=== PATIENT | female | born 1965 | race Hispanic/Latino ===

== ENCOUNTER 2024-11-17 13:30 | Emergency (ER) | payer OTHER, SELFPAY ==
--- NOTE | ~2024-11-17 | XR_ITS ---
XR knee LT min 4V Ordering provider: Charlene Maradiaga NP History: . FALL, TWISTED INJURY. . Comparison: None. FINDINGS: BONES: No acute fracture or dislocation. JOINT SPACES: Normal. SOFT TISSUES: Radiopaque shadow seen anterior to the tibia which may be foreign body or soft tissue c alcification IMPRESSION: No acute osseous abnormality left knee. Reviewed, dictated and finalized at location A.
--- OUTSIDE RECORDS SUMMARY | 2024-11-18 13:39 | XMS_ITS | Continuity of Care Document ---
Author Organization [facility] Address [address] [place] [address] [place] [address] Phone Care Team Providers Care Retail Security Professional Name Role Phone Marco A Shaw MD Unavailable Unavailable Allergies, Adverse Reactions, Alerts Substance Reaction Status Criticality venom-honey bee Active No Informati on tramadol Active No Information Medications Medication Instructions Dosage Effective Dates (start - stop) Status Comments [place] 10 mg-325 mg tablet take 1 by Oral route 4 times every day as needed 1 - Active avoid driving or operate machines Xanax 1 mg tablet take 1 tablet by oral route 3 times every day as needed 1 MG - Active avoid drivin g or operate machines Lipitor 20 mg tablet take 1 Tablet by oral route every day 20 MG - Active Wellbutrin XL 150 mg 24 hr tablet, extended release take 1 tablet by oral route every morning 150 MG - Active Procedures Procedure Date OFFICE/OUTPATIENT VISIT, EST OFFICE/OUTPATIENT VISIT, EST OFFICE/OUTPATIENT VISIT, EST OFFICE/OUTPATIENT VISIT, EST OFFICE/OUTPATIENT VISIT, EST OFFICE/OUTPATIENT VISIT, EST OFFICE/OUTPATIENT VISIT, EST OFFICE/OUTPATIENT VISIT, EST PREV VISIT, NEW, AGE 40-64 OFFICE/OUTPATIENT VISIT, NEW Advance Directives Directive Yes / No Effective Date File Name No Information Encounters Encounter Description Practice Location Reason(s) For Visit Diagnoses Date Provider Providers Copied on Encounter OFFICE/OUTPA TIENT VISIT, EST [facility], [address] [place] [id number], [place] tel:[phone] [facility] back pain1 (chief complaint) anxiety1 (chief complaint) alcohol1 (chief complaint) hep c (chief complaint) Chronic viral hepatitis CChronic pain syndromeGeneralized anxiety disorderAlcohol dependence, uncomplicated [id number] [address] Colin Strickland. [address], [place], [place], [id number] , [place]. tel:[phone] Referring Provider: Marco A Shaw, [address], [place], [place], [id number]. tel:[phone] OFFICE/OUTPA TIENT VISIT, [facility] [place], [address], [place], [place], [id number], [place] tel:[phone] [facility] HLP (chief complaint) anxiety1 (chief complaint) back pain1 (chief complaint) right toe pain1 (chief complaint) HyperlipidemiaGener alized anxiety disorderChronic pain syndromePain in rt foot 6 Colin Strickland. [address], [place], [place], [address] , [place]. [phone] Referring Provider: Rosalba Yang, [place], [place], [id number]. tel:[phone] OFFICE/OUTPA TIENT VISIT, [facility] [place], [address], [place], [place], [id number], [place] tel:[phone] [facility] HLP (chief complaint) back apin1 (chief complaint) hep c (chief complaint) proteinrui a1 (chief complaint) HyperlipidemiaGener alized anxiety disorderChronic viral hepatitis CProteinuria 0 6 Colin Anaya [address], [place], [place], [address] , [place]. tel:[phone] Referring Provider: Rosalba Yang, [place], [place], [id number]. tel:[phone] OFFICE/OUTPA TIENT VISIT, [facility] [place], [address], [place], [place], [address], [place] tel:[phone] [facility] back apin1 (chief complaint) anxiety1 (chief complaint) hLP (chief complaint) sick (chief complaint) HyperlipidemiaGener alized anxiety disorderChronic pain syndromeUpper respiratory infection 6 Colin Strickland. [address], [address], [place], [place], [address] , [place]. [phone] Referring Provider: Marco A Shaw, [address], [place], [place], [address]. tel:[phone] OFFICE/OUTPA TIENT VISIT, [facility] [place], [address], [place], [place], [address], [place] tel:[phone] [facility] HLP (chief complaint) anxiety1 (chief complaint) hep c (chief complaint) back pain1 (chief complaint) toothache (chief complaint) Chronic viral hepatitis CGeneralized anxiety disorderChronic pain syndromeHyperlipide dennis 6 Colin Strickland. [address], [address], [place], [place], [address] , [place]. [phone] Referring Provider: Rosalba Yang [address], [place], [place], [address]. tel:[phone] OFFICE/OUTPA TIENT VISIT, [facility] [place], [address], [place], [place], [address], [place] tel:[phone] [facility] hematuria1 (chief complaint) anxiety1 (chief complaint) back pain1 (chief complaint) hep c1 (chief complaint) HematuriaChronic pain syndromeGeneralized anxiety disorderChronic viral hepatitis C 6 Colin Strickland. [address], [place], [place], [address] , [place]. [phone] Referring Provider: Rosalba Yang [address], [place], [place], [address]. tel:[phone] OFFICE/OUTPA TIENT VISIT, [facility] [place], [address], [place], [place], [address], [place] tel:[phone] [facility] chronic pain (chief complaint) hep C (chief complaint) anxiety1 (chief complaint) Chronic pain syndromeChronic viral hepatitis CCrohn's disease, unspecified, with other complicationGeneral ized anxiety disorder 6 Colin Strickland. [address], [place], [place], [address] , [place]. [phone] Referring Provider: Rosalba Yang [address], [place], [place], [address]. tel:[phone] OFFICE/OUTPA TIENT VISIT, [facility] [place], [address], [place], [place], [address], [place] tel:[phone] [facility] lumbago1 (chief complaint) hep C (chief complaint) anxiety1 (chief complaint) Generalized anxiety disorderChronic viral hepatitis CCrohn's disease, unspecified, with other complicationChronic pain syndrome 6 Colin Strickland. [address], [place], [place], [address] , [place]. [phone] Referring Provider: Rosalba Yang [address], [place], [place], [address]. tel:[phone] PREV VISIT, NEW, AGE 40-64 [facility], [address], [place], [place], [address], [place] [phone] [facility] Physical1 (chief complaint) Encounter for general adult medical exam w abnormal findingsChronic pain syndromeGeneralized anxiety disorderCrohn's disease of large intestine with rectal bleeding 6 Colin Anaya [address], [place], [place], [address] , [place]. tel:[phone] Referring Provider: Rosalba Yang [address], [place], [place], [address]. tel:[phone] Family History Family Member Type Diagnosis Age At Onset Father Problem (finding) Hypertension Father Problem (finding) Diabetes mellitus type 2 Mother Problem (finding) Coronary artery disease 45 Brother Problem (finding) Alive and well Payers Payer name Insurance type Covered alliance party ID Authorstephaniea mark(s) No Information Social History Type Description Quantity Date Captured Comments Alcohol Use Details No Caffeine Use Details Unknown Tobacco Use Status Moderate cigarette s moker (10-19 cigs/day) Smoking Status Heavy tobacco smoker Sex Female Vital Signs Date / Time: Height Weight BMI Pulse Rate Blood Pressure Temperature Respiratory Rate Body Surface Area Head Circumference BMI percentile Pulse Ox Inhaled Ox 9:05 AM 154.94 cm 164.00 lbs 30.9 9 kg/m eter (2) 68 /min 125/69 mm[Hg] 98.4 F 18 /min Chief Complaint And Reason For Visit From encounter dated '06/09/2016 08:15'. back pain1 (chief complaint). Description: Pt has chronic low back pain. Pt takes norco for pain. Pt denies any worsening pain. Pt c/o sciatica and leg numbness anxiety1 (chief complaint). Description: Pt has chronic anxiety and depression. Pt takes wellbutrinand xanax. Pt doing ok. Pt denies any suicidal or homicidal thought. Pt denies any crying spells. alcohol1 (chief complaint). Description: Pt drinks alcohol rarely per pt and she does not mix alcohol with medication hep c (chief complaint). Description: Pt does not have any active hepatitis C. Pt has negative loadand type Plan Of Treatment Date Type Action Status Referral Ordered: Physical Therapy (related to Chronic pain syndrome) ordered Referral Referred To: Physical Therapy Ordered: Referrals: Physical Therapy. Evaluate and treat ordered History Of Present Illness Encounter Date Complaint History Of Prese nt Illness back pain1 Pt has chronic l ow back pain. Pt takes norco for pain. Pt denies any worsening pain. Pt c/o sciatica and leg numbness anxiety1 Pt has chronic a nxiety and depression. Pt takes wellbutrin and xanax. Pt doing ok. Pt denies any suicidal or homicidal thought. Pt denies any crying spells. alcohol1 Pt drinks alcoho l rarely per pt and she does not mix alcohol with medication hep c Pt does not have any active hepatitis C. Pt has negative load and type HLP Pt has HLP Pt ta kes lipitor. Pt denies any myalgia. Pt had lab done, but pending anxiety1 Pt has chronic a nxiety and depression Pt takes wellbutirn and xanax and doing ok. Pt denies any suicidal or homicidal thought back pain1 Pt has chronic s evere low back pain. Pt denies any worsening pain. Pt denies any loss of bowel or bladder control. Pt has scaitica. Pt has 7/10 pain daily. right toe pain1 Pt c/o acute ons et of right 1st MP joint pain for 4 weeks. Pt went to ER and was told she has gout. Pt was given abx only. PT denies any foot injury. Pt still has some pain right 1st MP joint but better HLP Pt has HLP. Pt t akes lipitor. Pt denies any myalgia. Pt is on low fat and low carb diet back apin1 Pt has chronic s evere low back apin. Pt denies any worsening pain. Pt denies any loss of bowel or bladder control. Pt takes norco for pain and doing ok. Pt failed NSAID. Pt has 8/10 pain daily. Pt c/o left sciatica. hep c Pt told me she h ad hep C lab done but result not here today. proteinruia1 Pt has proteinur ia. Pt denies any UTI symptoms. No more hematuria back apin1 Pt has chronic l ow back pain Pt has sciatica and leg numnbess. Pt has 7/10 pain daily. Pt c/o sharp pain anxiety1 Pt has chronic a nxity and depression. Pt takes wellbutirn and xanax and doing ok. Pt denies any suicidal or homcidialt hought. Pt denies any cyring spells hLP Pt tolerating li pitor ok. Pt denies any myalgia sick Pt c/o sore thro at, coughing up green phlegm, ear pain for one week. Pt denies any fever. Pt has subjective fever HLP Pt has very high TC and TG. Pt is not on any diet anxiety1 Pt has chronic a nxiety and depression. Pt takes wellbutrin and xanax and doing ok. Pt denies any suicidal or homiciadl thought. pt denies any crying spells hep c Pt has hep C Her hep C genotyping is undetected but no viral load avaialle in lab. Pt is noncompliant about GI back pain1 Pt has chronic l ow back pain. Pt denies any loss of bowel or bladder control toothache Pt has toothache left upper molor for several weeks Pt denies any facial swelling hematuria1 Pt has hematuria on urine test. Pt deneis any UTI symptoms anxiety1 Pt has chronic a nxiety and depression Pt takes wellbutrin and xanax. Pt denies any suicidal or homcidial thought. Pt denies any crying spells. back pain1 Pt has chronic l ow back pain. Pt denies any loss of bowel or bladder control. Pt was doing PT but was discharged since the PT told her it is not going to help.k Pt c/o sciatica and leg numbness. Pt has 8/10 back pain daily. hep c1 Pt has hep C and crohn disease Pt needs colonoscopy and also follow up with GI in [facility] for hep C treatment. Pt has been noncompliant. Pt has intermittent bloody diarrhea. chronic pain Pt has chronic l ow back pain. Pt c/o sciatica and leg numbness. Pt has severe pain and is opioid dependent. pt denies any worsening pain. Pt deneis any loss of bowel or bladder control anxiety1 Pt has chronic a nxiety and depression. Pt has been having taking wellbutirn and xanax. Pt denies any suicidal or homicidal thought. Pt has a lot of personal stress to deal with at home. hep C Pt has hep C and crohn disease. Pt needs repeat colonosocpy and also she is noncompliant with hep C lab. Pt is seeing GI doctor at [facility] but she has not done any lab work nor did she scheduled for a colonoscopy to reassess her crohn disease. Pt does have abd pain and cramp Pt denies any diarrhea or any blood in stool. lumbago1 Pt has chronic l ow back apin. Pt denies any loss of bowel or bladder control. Pt has severe DDD per patient. Pt was seeing pain managment but she does not want to use fentanyl and pain pump and she was discharged. Pt states that she tried fentanyl patch in the past. Pt could not afford the patch. P hep C Pt has hep C and also has has crohn disease. Pt told me she was never treated for hep C. Pt denies any nasuea, vomiting, diarrhea. anxiety1 pt has chronic a nxiety and depression. Pt takes wellbutirn and xanax. pt denies any suicidal or homcidialt hought Pt denies any crying spells Physical1 Pt needs annual physical. Pt has chronic severe low back pain. Pt was seeing pain managemnt but she refuses to use morphine pump so she was fired. Pt has severe DDD Lspine. Pt takes up to 8 norco per day. Pt failed injection. Pt c/o sciatica and leg numnbess. Pt has 9/10 p ain daily. Pt also has chronic anxiety and depression and she takes wellbutrin and xanax. Pt denies any suicidal or homicidal thought Pt denies any crying spells. Pt has crohn disease and she is seeing GI. No medication yet. Pt denies any other complaints. Instructions Date Instruction Marianne urias Prescribed Diet Educ ation/Lifestyle Education Regarding Diet Related to Dietary Surveillance and Counseling Prescribed Activity and Exercise Education Related to Dietary Surveillance and Counseling Prescribed Activity and Exercise Education Related to Dietary Surveillance and Counseling Prescribed Diet Educ ation/Lifestyle Education Regarding Diet Related to Dietary Surveillance and Counseling Prescribed Diet Educ ation/Lifestyle Education Regarding Diet Related to Dietary Surveillance and Counseling Prescribed Activity and Exercise Education Related to Dietary Surveillance and Counseling Prescribed Diet Educ ation/Lifestyle Education Regarding Diet Related to Dietary Surveillance and Counseling Prescribed Activity and Exercise Education Related to Dietary Surveillance and Counseling Prescribed Activity and Exercise Education Related to Dietary Surveillance and Counseling Prescribed Diet Educ ation/Lifestyle Education Regarding Diet Related to Dietary Surveillance and Counseling Prescribed Activity and Exercise Education Related to Dietary Surveillance and Counseling Prescribed Diet Educ ation/Lifestyle Education Regarding Diet Related to Dietary Surveillance and Counseling Prescribed Activity and Exercise Education Related to Dietary Surveillance and Counseling Prescribed Diet Educ ation/Lifestyle Education Regarding Diet Related to Dietary Surveillance and Counseling Prescribed Activity and Exercise Education Related to Dietary Surveillance and Counseling Prescribed Diet Educ ation/Lifestyle Education Regarding Diet Related to Dietary Surveillance and Counseling Prescribed Diet Educ ation/Lifestyle Education Regarding Diet Related to Dietary Surveillance and Counseling Prescribed Activity and Exercise Education Related to Dietary Surveillance and Counseling Assessments Type Assessment Date assessment Chronic viral hepatitis C assessment Chronic pain syndrome 6 assessment Generalized anxiety disorder Jun assessment Alcohol dependence, uncomplicate d Mental Status Date Cognitive Assessment Orientation - [place] ed to time, place, person, situation.
--- OUTSIDE RECORDS SUMMARY | 2024-11-18 13:39 | XMS_ITS | Referral Summary ---
Author Organization [facility] Address [address] [place] [address] Care Team Providers Care Doctor Of Nurse Anesthesia Name Role Phone Rigoberto Montejo RN Unavailable UnavailMagaly Raymond RN Unavailable Unavailab Donnie Raymond MD Primary Care Provider [phone] Allergies Active Allergy Reactions Criticality Noted Date Comments Bee Pollen Tramadol Other (See comments) Low Medication reaction with antidepressant Venom-Honey Bee Anaphylaxis,Angioede m a,Swelling High 05/06/2015 Medications naproxen (NAPROSYN) 500 mg tablet Take 1 tablet (500 mg total) by mouth as needed 11/20/2022 Active ibuprofen (ADVIL,MOTRIN) 800 mg tablet Take 1 tablet (800 mg total) by mouth every 6 (six) hours as needed for pain Active meloxicam (MOBIC) 15 mg tablet Take 1 tablet (15 mg total) by mouth daily 30 tablet 08/24/2023 Active Active Problems Problem Noted Date Diagnosed Date Bilateral nephrolithiasis 12/26/2022 Hydronephrosis with urinary obstruction due to ureteral calculus 04/24/2022 Ureterolithiasis 04/24/2022 Arthritis 06/07/2020 Sacroiliitis 12/15/2019 Lumbar radiculopathy 09/25/2019 Attention deficit disorder 04/22/2019 tank terminal gauger (current) use of opiate analgesic 07/2018 Tobacco use disorder 08/10/2018 Anxiety and depression 06/17/2018 Neuropathy 06/17/2018 Strain of left pectoralis muscle 04/22/2018 Chronic bilateral low back pain without sciatica 04/06/2018 Hallux valgus, right 09/27/2017 Mononeuritis leg, right 09/27/2017 Spondylolisthesis 10/16/2016 Overview (11/27/2016): Spondylolisthesis Spinal stenosis of lumbar region with radiculopa thy 10/16/2016 Overview (11/27/2016): Spinal stenosis of lumbar region Chronic pain disorder 11/21/2015 Viral hepatitis C without hepatic coma 6 Overview (06/07/2020): Overview: Genotype Diagnosed 2013 Naive to therapy 07/10/15 Fibroscan 7.7 kPa Anxiety disorder 05/06/2015 Crohn's disease 05/06/2015 Overview (06/07/2020): Overview: Diagnosed 2007 Dorsalgia 05/06/2015 Hematuria 05/06/2015 Overview (06/07/2020): Overview: Negative cystoscopy Major depressive disorder, single episode 2014 Polyneuropathy 05/06/2015 Pure hypercholesterolemia 05/06/2015 Degenerative spondylolisthesis 05/10/2014 Overview (10/08/2016): Acquired spondylolisthesis DDD (degenerative disc disease), lumbar 04/20/20 14 Overview (10/08/2016): Degeneration of lumbar intervertebral disc Lumbosacral radiculitis 04/20/2014 Overview (10/08/2016): Lumbosacral radiculitis History of cervical dysplasia 02/04/2010 Resolved Problems Problem Noted Date Diagnosed Date Resolved Date Screening for breast cancer 08/10/2018 01/08/2022 Foot sprain, left, initial encounter 04/22/2018 01/08/2022 Immunizations Immunization Administration Dates Next Due Hep A, Adult 05/14/2014,11/10/2013 Hep B Vaccine 05/14/2014,01/03/2014,11/10/2013 Influenza, Quadrivalent, Spl it, Preservative Free, Intramuscular 03/30/2019,05/05/2018 Pneumococcal Conjugate PCV 13 07/05/2016 Tdap 05/05/2018,09/06/2012 Social History Tobacco Use Types Packs/Day Years Used Date Smoking Tobacco: Every Day Cigarettes Smokeless Tobacco: Never Tobacco Cessation:Ready to Q uit: Not Asked; Counseling Given: Not Answered Alcohol Use Standard Drinks/Week Comments No 0 (1 standard drink = 0.6 oz pur e alcohol) PHQ-2 Answer Date Recorded PHQ-2 Total Score (If total score is 3 or more points, staff should administer the PHQ-9) 5 12/15/2019 Personal Safety Answer Date Recorded Have you ever been in or are you currently in a harmful physical or emotional relationship or is someone making you feel afraid or unsafe? 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 Gender Identity Not on file Sexual Orientation Not on file Last Filed Vital Signs Vital Sign Reading Time Taken Comments Blood Pressure 131/76 08/24/2023 4:40 PM CHILDREN COUNSELOR Pulse 106 08/24/2023 4:40 PM CHILDREN COUNSELOR Temperature 36.9 C (98.5 F) 08/24/2023 4:40 PM CHILDREN COUNSELOR Respiratory Rate 18 08/24/2023 4:40 PM CHILDREN COUNSELOR Oxygen Saturation 97% 08/24/2023 4:40 PM CHILDREN COUNSELOR Inhaled Oxygen Concentration - - Weight 81.6 kg (180 lb) 08/24/2023 4:40 PM CHILDREN COUNSELOR Height 154.9 cm (5' 1 ) 08/24/2023 4:40 PM CHILDREN COUNSELOR Body Mass Index 34.01 08/24/2023 4:40 PM CHILDREN COUNSELOR Plan of Treatment Not on file Goals Goal Patient Goal Type Associated Problems Recent Progress Patient-Stated? Author -[facility] No change(2019 10:42 AM CDT) No Rigoberto Montejo, RN Note: Patient will report that the pain management medication regimen achieves comfort-function goal without the occurrence of adverse effects. Insurance [employer] OPEN ACCESS [facility] [employer] OPEN ACCESS [facility] [employer] OPEN ACCESS [facility] Care Teams Doctor Of Nurse Anesthesia Relationship Specialty Start Date End Date Donnie Rene MD PCP - General Internal Medicine 01/07/22 Rigoberto Montejo, RN Registered Nurse 10/18/17 Magaly Sanchez, RN Registered Nurse Pain Management 01/11/18
--- OUTSIDE RECORDS SUMMARY | 2024-11-18 13:39 | XMS_ITS | Clinical Summary ---
Author Organization [facility] Address [address] [place] [address] Phone Care Team Providers Care Steam Table Associate Name Role Phone Meagn Davila APRN, MEDICAL PHYSICS PROFESSOR Unavailable Maynor Joy MD Unavailable Serene Vega MD Unavailable [phone] Lesly Toribio DO Primary Care Provider [phone] Allergies Active Allergy Reactions Criticality Noted Date Comments Bee Venom Anaphylaxis,Swelling High 07/31/2016 Mushroom Unknown 07/05/2024 Stated per patient Tramadol Other (see Comments),Hives Low 07/22/2015 Medication reaction with antidepressant interacts with depression medication Medications sertraline (ZOLOFT) 50 MG Tablet Take 1 Tablet by mouth daily. 90 Tablet 1 08/31/2024 Active meloxicam (MOBIC) 15 MG Tablet Take 1 Tablet by mouth daily. 90 Tablet 3 08/31/2024 Active traZODone (DESYREL) 100 MG Tablet Take 1 Tablet by mouth nightly. 30 Tablet 08/31/2024 Active gabapentin (NEURONTIN) 300 MG Capsule Take 1 Capsule by mouth nightly. 30 Capsule 3 08/31/2024 Active ergocalciferol (VITAMIN D) 74341 UNIT Capsule Take 1 Capsule by mouth once a week. 12 Capsule 09/13/2024 Active ibuprofen (MOTRIN) 600 MG TabletIndicatio ns:Pain Take 1 Tablet by mouth every 8 hours as needed for Moderate or more severe pain. Indications: Pain 30 Tablet 09/18/2024 Active Active Problems Problem Noted Date Diagnosed Date Tobacco dependence 02/19/2023 Bilateral nephrolithiasis 12/26/2022 Anxiety and depression 04/24/2022 Sacroiliitis 12/15/2019 Attention deficit disorder 04/22/2019 assisted (current) use of opiate analgesic 07/2018 Screening for breast cancer 08/10/2018 Tobacco use disorder 08/10/2018 Crohn's disease with complication 06/17/2018 Depression 06/17/2018 Neuropathy 06/17/2018 Chronic bilateral low back pain with bilateral s ciatica 04/06/2018 Hallux valgus, right 09/27/2017 Mononeuritis leg, right 09/27/2017 Spinal stenosis of lumbar region with radiculopa thy 10/16/2016 Overview (10/17/2020): Spinal stenosis of lumbar region Chronic pain disorder 11/21/2015 Viral hepatitis C without hepatic coma 6 Overview (10/17/2020): Overview: Genotype Diagnosed 2013 Naive to therapy 07/10/15 Fibroscan 7.7 kPa Genotype Diagnosed 2013 Naive to therapy 07/10/15 Fibroscan 7.7 kPa Polyneuropathy 05/06/2015 Acquired spondylolisthesis 05/10/2014 Overview (06/17/2018): Overview: Acquired spondylolisthesis Lumbosacral radiculitis 04/20/2014 Overview (10/17/2020): Lumbosacral radiculitis Dorsalgia Arthritis Anxiety disorder Lumbar degenerative disc disease Overview (06/17/2018): Overview: Degeneration of lumbar intervertebral disc Overview: L1-5 Hypercholesterolemia Resolved Problems Problem Noted Date Diagnosed Date Resolved Date Neurological deficit present 02/19/2023 02/21/2023 Ataxia 02/19/2023 02/21/2023 Numbness 02/19/2023 02/21/2023 Chest pain 02/19/2023 02/21/2023 Urinary tract infection 12/26/202212/04 Ureterolithiasis 04/24/2022 12/26/2022 Hydronephrosis with urinary obstruction due to ureteral calculus 04/24/2022 12/26/2022 Dysuria 09/12/2018 12/13/2018 Viral hepatitis C 06/17/2018 12/13/2018 Overview (06/17/2018): Overview: Genotype Diagnosed 2013 Naive to therapy 07/10/15 Fibroscan 7.7 kPa Strain of left pectoralis muscle 04/22/2018 08/08/2018 Metatarsalgia, left foot 09/27/201710/2018 [place] or callus 09/27/2017 09/12/2018 Pain in both feet 09/27/2017 08/08/2018 Viral hepatitis C without hepatic coma 07/10/2015 12/13/2018 Overview (06/17/2018): Overview: Genotype Diagnosed 2013 Naive to therapy 07/10/15 Fibroscan 7.7 kPa Hypertension 08/08/2018 Asthma 08/08/2018 Encounters Date Type Department Care Team Description 10/19/2024 Telephone [facility] [place] [address] Lesly Toribio DO 10/02/2024 Nurse Triage [facility] [address] [place] [id number] Lesly Toribio, Advice Only; [facility]; Diarrhea; Abdominal Pain 09/19/2024 Results [facility]-Up [facility] [address] [place] [address] Lesly Toribio, DO XR CERVICAL SPINE MINIMUM 4 VIEWS (4 OR 5V) 09/18/2024 1:43 PM CDT - 09/18/2024 3:58 PM CDT [facility] [address] [place] [address] Zi Stewart, PAC Contusion of right shoulder, initial encounter Discharge Disposition: Discharged to home or Selfcare 09/18/2024 Travel 09/13/2024 Results [facility] [place] [address] Lesly Toribio DO CMP (COMPREHENSIVE METABOLIC PANEL), HEMOGLOBIN A1C W/ ESTIMATED GLUCOSE, LIPID PANEL, Additional followed-up results: 6 09/06/2024 2:24 PM HIRED HAND - 09/06/2024 11:59 PM HIRED HAND Hospital Encounter [facility] Diagnostic Radiology [address] [place] [address] Lesly Toribio, Discharge Disposition: Discharged to home or Selfcare 09/06/2024 Travel 08/31/2024 9:45 AM HIRED HAND Office Visit [facility] [address] [place] [address] Lesly Toribio, Polyneuropathy (Primary Dx); Other fatigue; Hypercholesterolemia; Lumbosacral radiculitis; Hepatitis C virus infection without hepatic coma, unspecified chronicity; Tobacco dependence; Encounter for screening mammogram for malignant neoplasm of breast; Anxiety and depression; Encounter for screening mammogram for breast cancer; Crohn's disease of colon with complication (HCC) Discharge Disposition: Discharged to home or Selfcare 08/31/2024 Travel 08/24/2024 Telephone [facility] [place] [address] Lesly Toribio DO from Last 3 Months Immunizations Immunization Administration Dates Next Due Covid-19, Mrna, Lnp-s, Pf, 1 00 Mcg Or 50 Mcg Dose (MODERNA) 10/03/2021,09/08/2021 Hepatitis A Vaccine 05/14/2014,11/10/2013 Hepatitis B Vaccine 05/14/2014,01/03/2014,2013 Influenza Vaccine, Quadrivalent, PF 03/30/2019,1 07/05/2017 Pneumococcal Vaccine - 13 Valent 07/05/2016 TDAP Vaccine 05/05/2018,09/06/2012 Family History Medical History Relation Name Comments Alcohol Abuse Brother 1 Bipolar Disorder Brother 1 Depression Brother 1 Drug Abuse Brother 1 No Known Problems Brother 2 Alcohol Abuse Father Diabetes Father Hypertension Father Rheumatoid Arthritis Father No Known Problems Maternal Grandfather No Known Problems Maternal Grandmother Asthma Mother Congestive Heart Failure Mother Heart Attack Mother Heart Disease Mother Heart Surgery Mother Migraines Mother Other-comment Mother OPEN HEART ANABELLA JERRICA Stroke Mother Diabetes Paternal Grandfather Breast Cancer Paternal Grandmother Cancer Paternal Grandmother breast Alcohol Abuse Sister 1 No Known Problems Sister 2 Migraines Sister 3 Relation Name Status Comments Brother 1 Alive Brother 2 Alive Father Maternal Grandfather Maternal Grandmother Mother Alive Paternal Grandfather Paternal Grandmother Sister 1 Alive Sister 2 Alive Sister 3 Alive Social History Tobacco Use Types Packs/Day Years Used Date Smoking Tobacco: Every Day Cigarettes Smokeless Tobacco: Never Tobacco Cessation:Ready to Q uit: Not Asked; Counseling Given: Not Answered Alcohol Use Standard Drinks/Week Comments Yes 0 (1 standard drink = 0.6 oz pur e alcohol) Very rare PHQ-2 Answer Date Recorded Total Score - Questions 1-9 0 08/06 Sexually Active Control Partners Comments Not Currently Comments No Sex and Gender Information Value Date Recorded Sex Assigned at Not on file Legal Sex Female 9:07 PM CDT Gender Identity Not on file Sexual Orientation Not on file Last Filed Vital Signs Vital Sign Reading Time Taken Comments Blood Pressure 118/72 09/18/2024 1:40 PM CDT Pulse 84 09/18/2024 1:40 PM CDT Temperature 36.2 C (97.1 F) 09/18/2024 1:40 PM CDT Respiratory Rate 18 09/18/2024 1:40 PM CDT Oxygen Saturation 98% 09/18/2024 1:40 PM CDT Inhaled Oxygen Concentration - - Weight 77.1 kg (170 lb) 09/18/2024 1:40 PM CDT Height 154.9 cm (5' 1 ) 09/18/2024 1:40 PM CDT Body Mass Index 32.12 09/18/2024 1:40 PM CDT Plan of Treatment Health Maintenance Due Date Last Done Comments Jamel 2017 Mammogram 09/10/2017 09/10/2016 Immunochemical Fecal Occult Blood 11/29/2021 11/29/2020 Colonoscopy 10/28/2027 10/27/2017, 06/09/2017, 08/14/2015 Colorectal Cancer Screening 10/28/2027 Td Immunization Every 10 Yea rs (Adults With 1 Tdap) 05/05/2028 05/05/2018, 09/06/2012 Respiratory Syncytial Virus (RSV) Immunization (Adult) (1 - 1-dose 75+ series) 2042 10/27/2017, 06/09/2017, 08/14/2015 Hepatitis B Immunization Completed 014, 01/03/2014, 11/10/2013 Pneumococcal Immunization (5 0+ years) Discontinued 07/05/2016 Pneumococcal Immunization Combined Discontinued 07/05/2016 Influenza Immunization Discontinued 9, 05/05/2018 SARS-COV-2 Immunization Discontinued 10/04/19, 09/08/2021 Human Papillomavirus (HPV) Immunization Aged Out No longer eligible based on patient's age to complete this topic Meningococcal Immunization (ACWY) Aged Out No longer eligible based on patient's age to complete this topic Rotavirus Immunization Aged Out No lo nger eligible based on patient's age to complete this topic Zoster Immunization Discontinued Medical Devices Implanted Type Area Wheelage Clerk Device Identifier Shelf Expiration Date Model / Serial / Lot Stent Ureteral 6fr 2.1fr 22cm 2 Pigtail Curve 2 Durometer Taper Tip Loprfl Graduated Polaris Ultra - [id number] Implanted:Qty: 1 on 04/24/2022 by Serene Veag MD at [facility] IMPLANT Left: Ureter Edufii 05/10/2023 [id number] / [id number] Description:NO STRINGS Staple Bone 1.5mmx1.2mm 2mm Superelasticity Drill 8x8mm Orth Easyclip - [id number] Implanted:Qty: 1 on 06/04/2022 by Dari Benavidez DPM at [facility] IMPLANT Right: Foot [employer] 06/03/2025 [id number] / [id number] / [id number] Stent Ureteral 6fr 2.1fr 22cm 2 Pigtail Curve 2 Durometer Taper Tip Loprfl Graduated Polaris Ultra - [id number] Implanted:Qty: 1 on 12/26/2022 by Serene Vega MD at [facility] IMPLANT Left: Ureter Edufii 08/04/2024 [id number] / [id number] Staple Bone 1.5mmx1.2mm 2mm Superelasticity Drill 8x8mm Orth Easyclip - [id number] Implanted:Qty: 1 on 11/16/2023 by Dari Benavidez, DPM at [facility] IMPLANT Left: Toe [employer] 05/04/2028 [id number] / [id number] / [id number] Screw Bone 2.5mm 3.4mm 16mm Fixos Ti Foot Ankle Taryn Cmpr Self Drill Slftp Ns .9mm Kirshner Wire - [id number] Implanted:Qty: 1 on 11/16/2023 by Dari Benavidez, DPM at [facility] IMPLANT Left: Toe [employer] SV16 / SV16 / SV16 Screw Bone 2.5mm 3.4mm 12mm Fixos Ti Foot Ankle Taryn Cmpr Self Drill Slftp Ns .9mm Kirshner Wire - [id number] Implanted:Qty: 1 on 11/16/2023 by Dari Benavidez, DPM at [facility] IMPLANT Left: Toe [employer] SV12 / SV12 / SV12 Description:SECOND TOE, LEFT FOOT Allograft Human Tissue Viaflow 1ml Pre-Mixed Injectable Flowable Placental Membrane Matrix - [id number] Implanted:Qty: 1 on 11/16/2023 by Dari Benavidez, DPM at [facility] IMPLANT Left: Foot [employer] 08/29/2025 [id number]-0010 / AMAF-0010 / [id number] 2.5 X 20mm Fixos Screw, Esla Implanted:Qty: 2 on 06/04/2022 by Dari Benavidez, DPM at [facility] Right: Toe ELSA SV20 / SV20 / SV20 Description:RIGHT GREAT TOE 2.5 X 14mm Fixos Screw, Elsa Implanted:Qty: 1 on 06/04/2022 by Dari Benavidez DPM at [facility] Right: Toe ELSA SV14 / SV14 / SV14 Description:SECOND METATARSA L, RIGHT FOOT Procedures Procedure Name Priority Date/Time Associated Diagnosis Comments XR ELBOW MINIMUM 3 VIEWS LEFT STAT 09/18/2024 2:26 PM CDT XR SHOULDER COMPLETE RIGHT STAT 09/18/2024 2:23 PM CDT XR CERVICAL SPINE MINIMUM 4 VIEWS (4 OR 5V) Routine 09/06/2024 2:41 PM HIRED HAND Polyneuropathy CBC WITH AUTO DIFFERENTIAL Routine 09/06/2024 2:14 PM HIRED HAND Polyneuropathy Other fatigue Hypercholesterolemi a Lumbosacral radiculitis Hepatitis C virus infection without hepatic coma, unspecified chronicity Tobacco dependence Encounter for screening mammogram for malignant neoplasm of breast Anxiety and depression VITAMIN D, 25 HYDROXY TOTAL Routine 09/06/2024 2:14 PM HIRED HAND Polyneuropathy Other fatigue Hypercholesterolemi a Lumbosacral radiculitis Hepatitis C virus infection without hepatic coma, unspecified chronicity Tobacco dependence Encounter for screening mammogram for malignant neoplasm of breast Anxiety and depression VITAMIN B12 Routine 09/06/2024 2:14 PM HIRED HAND Polyneuropathy Other fatigue Hypercholesterolemi a Lumbosacral radiculitis Hepatitis C virus infection without hepatic coma, unspecified chronicity Tobacco dependence Encounter for screening mammogram for malignant neoplasm of breast Anxiety and depression ERYTHROCYTE SEDIMENTATION RATE (ESR) Routine 09/06/2024 2:14 PM HIRED HAND Polyneuropathy Other fatigue Hypercholesterolemi a Lumbosacral radiculitis Hepatitis C virus infection without hepatic coma, unspecified chronicity Tobacco dependence Encounter for screening mammogram for malignant neoplasm of breast Anxiety and depression C-REACTIVE PROTEIN (CRP) QUANT Routine 09/06/2024 2:14 PM HIRED HAND Polyneuropathy Other fatigue Hypercholesterolemi a Lumbosacral radiculitis Hepatitis C virus infection without hepatic coma, unspecified chronicity Tobacco dependence Encounter for screening mammogram for malignant neoplasm of breast Anxiety and depression THYROID STIMULATING HORMONE (TSH) Routine 09/06/2024 2:14 PM HIRED HAND Polyneuropathy Other fatigue Hypercholesterolemi a Lumbosacral radiculitis Hepatitis C virus infection without hepatic coma, unspecified chronicity Tobacco dependence Encounter for screening mammogram for malignant neoplasm of breast Anxiety and depression LIPID PANEL Routine 09/06/2024 2:14 PM HIRED HAND Polyneuropathy Other fatigue Hypercholesterolemi a Lumbosacral radiculitis Hepatitis C virus infection without hepatic coma, unspecified chronicity Tobacco dependence Encounter for screening mammogram for malignant neoplasm of breast Anxiety and depression HEMOGLOBIN A1C W/ ESTIMATED GLUCOSE Routine 09/06/2024 2:14 PM HIRED HAND Polyneuropathy Other fatigue Hypercholesterolemi a Lumbosacral radiculitis Hepatitis C virus infection without hepatic coma, unspecified chronicity Tobacco dependence Encounter for screening mammogram for malignant neoplasm of breast Anxiety and depression CMP (COMPREHENSIVE METABOLIC PANEL) Routine 09/06/2024 2:14 PM HIRED HAND Polyneuropathy Other fatigue Hypercholesterolemi a Lumbosacral radiculitis Hepatitis C virus infection without hepatic coma, unspecified chronicity Tobacco dependence Encounter for screening mammogram for malignant neoplasm of breast Anxiety and depression COMPLETE BLOOD COUNT (CBC) WITH DIFF Routine 09/06/2024 2:14 PM HIRED HAND Polyneuropathy Other fatigue Hypercholesterolemi a Lumbosacral radiculitis Hepatitis C virus infection without hepatic coma, unspecified chronicity Tobacco dependence Encounter for screening mammogram for malignant neoplasm of breast Anxiety and depression STOOL, OCCULT BLOOD, DIAGNOSTIC, VIA GUAIAC STAT 11/29/2020 11:02 AM CDT VICKI DIAG BILATERAL DIGITAL W CAD Routine 09/10/2016 1:49 PM HIRED HAND Discharge from right nipple Lump of breast, right HM COLONOSCOPY Routine 08/14/2015 from Last 3 Months or Most Recently Relevant to Health Maintenance Results * XR ELBOW MINIMUM 3 VIEWS LEFT (09/18/2024 2:26 PM CDT) Anatomical Region Laterality Modality UPPER EXTREMITY, elbow Left Digital R adiography 09/18/2024 3:32 PM CDT Impressions 09/18/2024 3:35 PM CDT IMPRESSION: No acute osseous abnormality. Narrative 09/18/2024 3:35 PM CDT EXAM DESCRIPTION: XR ELBOW MINIMUM 3 VIEWS LEFT REASON FOR STUDY: left elbow pain. fall 2 days ago. TECHNIQUE: 3 radiographic view(s) of the left elbow . COMPARISON: Comparison 01/09/2020. FINDINGS: BONES/JOINTS: There is no acute fracture, malalignment or osseous abnormality. The joint spaces are normal. SOFT TISSUES: Within normal limits. THIS IS AN ELECTRONICALLY VERIFIED FINAL REPORT 09/18/2024 3:32 PM - Electronically signed by Tay Lee M.D. LC: SHERICE Report ID: [id number] Reading Location: [id number] Procedure Note Laura Lee MD - 09/18/2024 EXAM DESCRIPTION: XR ELBOW MINIMUM 3 VIEWS LEFT REASON FOR STUDY: left elbow pain. fall 2 days ago. TECHNIQUE: 3 radiographic view(s) of the left elbow . COMPARISON: Comparison 01/09/2020. FINDINGS: BONES/JOINTS: There is no acute fracture, malalignment or osseous abnormality. The joint spaces are normal. SOFT TISSUES: Within normal limits. THIS IS AN ELECTRONICALLY VERIFIED FINAL REPORT 09/18/2024 3:32 PM - Electronically signed by Tay Lee M.D. LC: SHERICE Report ID: [id number] Reading Location: [id number] IMPRESSION: No acute osseous abnormality. Zi SALAS IMG DIAGNOSTIC ORDER AIDEE Final Result * XR SHOULDER COMPLETE RIGHT (09/18/2024 2:23 PM CDT) Anatomical Region Laterality Modality UPPER EXTREMITY, shoulder Right Digita l Radiography 09/18/2024 3:34 PM CDT Impressions 09/18/2024 3:36 PM CDT IMPRESSION: No acute osseous abnormality. Narrative 09/18/2024 3:36 PM CDT EXAM DESCRIPTION: XR SHOULDER COMPLETE RIGHT REASON FOR STUDY: right shoulder pain, fall 2 days ago. TECHNIQUE: 4 view(s) of the right shoulder COMPARISON: Comparison is dated 12/08/2019. FINDINGS: The humeral head is intact and is well seated in the glenoid fossa. The subacromial space is maintained. The acromioclavicular joint is normal. The included right lung appears unremarkable. THIS IS AN ELECTRONICALLY VERIFIED FINAL REPORT 09/18/2024 3:34 PM - Electronically signed by Tay Lee M.D. LC: SHERICE Report ID: [id number] Reading Location: [id number] Procedure Note Laura Lee MD - 09/18/2024 EXAM DESCRIPTION: XR SHOULDER COMPLETE RIGHT REASON FOR STUDY: right shoulder pain, fall 2 days ago. TECHNIQUE: 4 view(s) of the right shoulder COMPARISON: Comparison is dated 12/08/2019. FINDINGS: The humeral head is intact and is well seated in the glenoid fossa. The subacromial space is maintained. The acromioclavicular joint is normal. The included right lung appears unremarkable. THIS IS AN ELECTRONICALLY VERIFIED FINAL REPORT 09/18/2024 3:34 PM - Electronically signed by Tay Lee M.D. LC: SHERICE Report ID: [id number] Reading Location: [id number] IMPRESSION: No acute osseous abnormality. Zimariza Marroquinn PAC IMG DIAGNOSTIC ORDER AIDEE Final Result * XR CERVICAL SPINE MINIMUM 4 VIEWS (4 OR 5V) (09/06/2024 2:41 PM HIRED HAND) Anatomical Region Laterality Modality Spine, C-spine N/A Digital Radiogra phy 09/10/2024 10:4 1 AM CDT Impressions 09/10/2024 10:44 AM CDT IMPRESSION: Severe C3-C4, mild C5-C6 and moderate C6-C7 degenerative disc disease with bilateral cervical facet osteoarthritis. Bilateral C3-C4 and C6-C7 foraminal impingement. Narrative 09/10/2024 10:44 AM CDT EXAM DESCRIPTION: XR CERVICAL SPINE MINIMUM 4 VIEWS (4 OR 5V) REASON FOR STUDY: pain x 6mo down into shoulders and arms. tingling, worse on left FINDINGS: Five views submitted without comparison. No acute fracture. No prevertebral soft tissue swelling. There is mild retrolisthesis of C3-C5 and anterolisthesis of C5 on C6. Severe C3-C4, mild C5-C6 and moderate C6-C7 degenerative disc disease. Bilateral cervical facet osteoarthritis is present. The lateral masses of C1 properly articulate on C2. Bilateral C3-C4 and C6-C7 foraminal impingement. THIS IS AN ELECTRONICALLY VERIFIED FINAL REPORT 09/10/2024 10:41 AM - Electronically signed by Castillo Jovel M.D. MF: BRAYAN Report ID: [id number] Reading Location: [id number] Procedure Note Castillo Jovel MD - 09/10/2024 EXAM DESCRIPTION: XR CERVICAL SPINE MINIMUM 4 VIEWS (4 OR 5V) REASON FOR STUDY: pain x 6mo down into shoulders and arms. tingling, worse on left FINDINGS: Five views submitted without comparison. No acute fracture. No prevertebral soft tissue swelling. There is mild retrolisthesis of C3-C5 and anterolisthesis of C5 on C6. Severe C3-C4, mild C5-C6 and moderate C6-C7 degenerative disc disease. Bilateral cervical facet osteoarthritis is present. The lateral masses of C1 properly articulate on C2. Bilateral C3-C4 and C6-C7 foraminal impingement. THIS IS AN ELECTRONICALLY VERIFIED FINAL REPORT 09/10/2024 10:41 AM - Electronically signed by Castillo Jovel M.D. MF: BRAYAN Report ID: [id number] Reading Location: [place] [id number] IMPRESSION: Severe C3-C4, mild C5-C6 and moderate C6-C7 degenerative disc disease with bilateral cervical facet osteoarthritis. Bilateral C3-C4 and C6-C7 foraminal impingement. us Lesly Toribio DO IMG DIAGNOSTIC ORDERABLES Fin al Result * VITAMIN D, 25 HYDROXY TOTAL (09/06/2024 2:14 PM HIRED HAND) VITAMIN D, 25 HYDROX 19.8 ng/mL 09/06/2024 3:52 PM HIRED HAND [facility] Blood Venipuncture / Unknown 09/06/2024 2:14 PM HIRED HAND 09/06/2024 2:58 PM HIRED HAND Narrative [facility] - 09/06/2024 3:52 PM HIRED HAND Published reference ranges for Vitamin D vary depending on time and place and method of testing, and on patient's age, sex, ethnicity and levels of other measured analytes such as parathormone, calcium and phosphorus. The result should be evaluated in conjunction with clinical findings and suspicions. [employer] Clinical Practice Guidelines: Status Vitamin D levels (ng/mL) Deficient <=20 At risk of inadequacy 21-29 Sufficient 30-100 Centers of Disease Control and Prevention Guidelines: Status Vitamin D levels (ng/mL) Deficient <13 At risk of inadequacy 13-19 Sufficient 20-50 Possibly harmful >50 References: [employer], 2010 Dietary reference intakes for calcium and vitamin D. [place]: The National Academies Press. Tip M, Irma N, Hoang HERNANDEZ, et al., Evaluation, treatment, and prevention of Vitamin D deficiency: an Endocrinology Clinical Practice Guideline. JCEM 2011 96: 7 5062-7267. Marguerite A, Ronnie C, Denisse D, et al., Vitamin D Status: [place], 0288-0907, [facility] data brief, no. 59, MD [place]: [facility] for Health Statistics. 2010. us Lesly Anya Catarino DO CHEMISTRY ORDERABLES Final Re sult Performing Organization Address City/[facility] Co de Phone Number [facility] [place] [address] * HEMOGLOBIN A1C W/ ESTIMATED GLUCOSE (09/06/2024 2:14 PM HIRED HAND) HGB-A1C 5.5 4.0 - 6.0 % 09/06/2024 3:25 PM HIRED HAND [facility] Est Average Glucose 111.2 mg/dL 09/06/2024 3:25 PM HIRED HAND [facility] Blood Venipuncture / Unknown 09/06/2024 2:14 PM HIRED HAND 09/06/2024 2:58 PM HIRED HAND Narrative [facility] - 09/06/2024 3:25 PM HIRED HAND HEMOGLOBIN A1C: DIABETIC PATIENTS: WELL-CONTROLLED: 6.2 - 7.0 INTERMEDIATE WELL-CONTROLLED: 7.0 - 9.0 POORLY-CONTROLLED: >9.0 Specimens containing greater than 5% of Hemoglobin F may result in lower than expected % HbA1C results. us Lesly L Catarino DO CHEMISTRY ORDERABLES Final Re sult Performing Organization Address [facility] Co de Phone Number [facility] [address] [place] [address] * (ABNORMAL) CBC WITH AUTO DIFFERENTIAL (09/06/2024 2:14 PM HIRED HAND) WBC 6.69 4.00 - 12.00 10(3)/mcL 09/06/2024 3:06 PM HIRED HAND [facility] RBC 3.98 3.80 - 5.30 10(6)/mcL 09/06/2024 3:06 PM HIRED HAND [facility] HEMOGLOBIN (HGB) 12.7 12.0 - 15.8 g/dL 09/06/2024 3:06 PM [facility] HEMATOCRIT (HCT) 38.3 36.0 - 47.0 % 09/06/2024 3:06 PM [facility] MCV 96.2(H) 82.0 - 96.0 fL 09/06/2024 3:06 PM [facility] MCH 31.9 26.0 - 34.0 pg 09/06/2024 3:06 PM [facility] MCHC 33.2 31.0 - 36.0 g/dL 09/06/2024 3:06 PM [facility] PLATELET COUNT 272 140 - 440 10(3)/mcL 09/06/2024 3:06 PM [facility] RDW 13.3 11.8 - 15.5 % 09/06/2024 3:06 PM [facility] MPV 9.2(L) 9.7 - 12.4 fL 09/06/2024 3:06 PM [facility] NEUTROPHILS 50.2 47.0 - 73.0 % 09/06/2024 3:06 PM [facility] [facility] LYMPHOCYTES 33.6 18.0 - 42.0 % 09/06/2024 3:06 PM [facility] MONOCYTES 10.8 4.0 - 12.0 % 09/06/2024 3:06 PM [facility] EOSINOPHILS 4.5 0.0 - 5.0 % 09/06/2024 3:06 PM [facility] BASOPHILS 0.9 0.0 - 1.0 % 09/06/2024 3:06 PM [facility] ABSOLUTE NEUTROPHILS 3.36 1.60 - 7.70 10(3)/mcL 09/06/2024 3:06 PM [facility] ABSOLUTE LYMPHOCYTES 2.25 1.30 - 3.20 10(3)/mcL 09/06/2024 3:06 PM [facility] ABSOLUTE MONOCYTES 0.72 0.20 - 1.00 10(3)/mcL 09/06/2024 3:06 PM [facility] ABSOLUTE EOSINOPHIL 0.30 0.00 - 0.40 10(3)/mcL 09/06/2024 3:06 PM [facility] ABSOLUTE BASOPHILS 0.06 0.00 - 0.10 10(3)/mcL 09/06/2024 3:06 PM [facility]IRED [facility] NRBC PER 100 WBC 0 09/07/19 25 3:06 PM [facility]IRED [facility] Blood Venipuncture / Unknown 09/06/2024 2:14 PM HIRED HAND 09/06/2024 3:01 PM HIRED HAND us Lesly L Catarino DO HEMATOLOGY ORDERABLES Final R esult Performing Organization Address City/[facility]/ZIP Co de Phone Number [facility] [place] [address] * VITAMIN B12 (09/06/2024 2:14 PM HIRED HAND) VITAMIN B12 406 213 - 816 pg/mL 09/06/2024 3:52 PM [facility]IRED [facility] Blood Venipuncture / Unknown 09/06/2024 2:14 PM HIRED HAND 09/06/2024 2:58 PM HIRED HAND us Lesly L Catarino DO CHEMISTRY ORDERABLES Final Re sult [facility] [address] [place] [address] * THYROID STIMULATING HORMONE (TSH) (09/06/2024 2:14 PM HIRED HAND) TSH 0.950 0.300 - 5.000 mIU/L 09/06/2024 3:46 PM HIRED [facility] Blood Venipuncture / Unknown 09/06/2024 2:14 PM HIRED HAND 09/06/2024 2:58 PM HIRED HAND us Lesly L Catarino DO CHEMISTRY ORDERABLES Final Re sult Performing Organization Address [facility] Co de Phone Number [facility] [place] [address] * ERYTHROCYTE SEDIMENTATION RATE (ESR) (09/06/2024 2:14 PM HIRED HAND) ESR (SED RATE, ERYTHROCYTE SEDIMENTATION RATE) 12 <30 mm/h 09/06/2024 3:14 PM HIRED HAND [facility] Comment: Patients presenting with increased level of fibrinogen, gamma globulins, or abnormally shaped RBCs could affect the results for the erythrocyte sedimentation rate (ESR). Results should be clinically correlated. Blood Venipuncture / Unknown 09/06/2024 2:14 PM HIRED HAND 09/06/2024 3:01 PM HIRED HAND us Lesly Toribio DO HEMATOLOGY ORDERABLES Final R esult Performing Organization Address [facility] Co 4[address]37|[id number]|2024-11-18 13:39:00|2024-11-18 13:39:00|XMS_ITS|BKG DAEMON|External Medical Summaries|[id number]|" Encounter Summary Created on: November 18, 2024 Alexa Ace V : 1965 Sex: Female Author Organization [facility] Address [address] [facility] [place] [address] Phone Care Team Providers Care Steam Table Associate Name Role Phone Megan Davila APRN, MEDICAL PHYSICS PROFESSOR Unavailable Jose Roberto Carlson MD Primary Care Provider [phone] Elzbieta Shelton Primary Care Provider + Donnie Rene MD Primary Care Provider [phone] Maynor Joy MD Unavailable Serene Vega MD Unavailable [phone] Provider, None Primary Care Provider Unavailabl e CatarinoLesly raines DO Primary Care Provider [phone] Reason for Visit * Reason Comments Medication Refill Encounter Details Date Type Department Care Team (Late st Contact Info) Description 03/19/2021 Refill [facility] - Family Medicine [facility] [address] [place] [address] Jose Roberto Carlson MD [address] [place] [address] Medication Refill Social History Tobacco Use Types Packs/Day Years Used Date Smoking Tobacco: Every Day Cigarettes Smokeless Tobacco: Never Alcohol Use Standard Drinks/Week Comments No 0 (1 standard drink = 0.6 oz pur e alcohol) PHQ-2 Answer Date Recorded Total Score - Questions 1-9 0 02/02 Sexually Active Control Partners Comments Not Currently Comments No Sex and Gender Information Value Date Recorded Sex Assigned at Not on file Legal Sex Female 9:07 PM CDT Gender Identity Not on file Sexual Orientation Not on file documented as of this encounter Miscellaneous Notes * Telephone Encounter - Lisa Garcia RN - 03/19/2021 4:00 PM CDT The original prescription was discontinued on 01/31/2021 by Noé Pacheco MD for the followingreason: Med List Clean Up documented in this encounter Plan of Treatment Not on file documented as of this encounter Visit Diagnoses Diagnosis Chronic pain disorder Chronic pain syndrome documented in this encounter Additional Health Concerns Infection Onset Date Last Indicated Resolved Time COVID - 19 04/04/2023 04/04/2023 04/04/2023 5:37 PM CDT COVID - 19 08/14/2023 08/14/2023 08/24/2023 12:1 6 AM HIRED HAND RSV 08/14/2023 08/14/2023 09/11/2023 12:1 6 AM HIRED HAND COVID - 19 02/18/2024 02/18/2024 02/18/2024 5:32 PM CDT COVID - 19 08/11/2024 08/11/2024 08/11/2024 2:02 PM HIRED HAND Influenza 08/11/2024 08/11/2024 08/18/2024 12:1 7 AM HIRED HAND Assessment Noted Time PHQ-9 Depression Total Score: 0 02/20/20 8:11 AM CDT documented as of this encounter Care Teams Steam Table Associate Relationship Specialty Start Date End Date Jose Roberto Carlson MD PCP - General Family Medicine 10/03/18 10/19/21 Elzbieta Shelton PAC [address] [place] [address] PCP - General Physician Qa Developer 10/28/21 10/28/21 Donnie Rene MD [address] [place] [address] PCP - General Internal Medicine 11/18/21 11/15/23 Provider, None [place] PCP - General 11/16/23 08/30/24 Lesly Toribio DO [address] [address] PCP - General Family Medicine 08/31/24 Megan Davila, OPTICAL MECHANIC, MEDICAL PHYSICS PROFESSOR Nurse Practitioner Advanced Practice Nurse 03/24/17 Maynor Joy MD [address] [place] [address] Consulting Physician Orthopaedic Surgery 04/29/22 Serene Vega MD [address] [address] Consulting Physician Urology 05/08/22 documented as of this encounter "
--- OUTSIDE RECORDS SUMMARY | 2024-11-18 13:39 | XMS_ITS | Encounter Summary ---
Author Organization [facility] Address [address] [place] [address] Phone Care Team Providers Care [facility] Shift Lead Name Role Phone Megan Davila APRN, HULLER OPERATOR Unavailable Jose Roberto Carlson MD Primary Care Provider [phone] Elzbieta Shelton Primary Care Provider + Donnie Rene MD Primary Care Provider [phone] Maynor Joy MD Unavailable Serene Vega MD Unavailable [phone] Provider, None Primary Care Provider Unavailabl e Lesly Toribio DO Primary Care Provider [phone] Reason for Visit * Reason Comments Medication Refill Encounter Details Date Type Department Care Team (Late st Contact Info) Description 05/27/2020 Refill [facility] - Family Medicine [facility] [address] [place] [address] Jose Roberto Carlson MD [address] [place] [address] Medication Refill Social History Tobacco Use Types [...] on file Sexual Orientation Not on file COVID-19 Exposure Response Date Recorded In the last month, have you been in contact with someone who was confirmed or suspected to have Coronavirus / COVID-19? No / Unsure 05/26/2020 4:28 PM HUMANITIES PROFESSOR documented as of this encounter Miscellaneous Notes * Telephone Encounter - Sandra Coronado RN - 05/27/2020 4:50 PM CST Last OV 03/20/20 - no follow up - last fill dates noted on Rx Alprazolam fill date should be 05/29/20, I am unable to change start date Medication failed the protocol, provider to review and approve the medication order if appropriate. Requested Prescriptions Pending Prescriptions Disp Refills ALPRAZolam (XANAX) 1 MG Tablet [Pharmacy Med Name: ALPRAZOLAM 1MG TABLET] 30 Tab 0 Sig: TAKE 1 TAB BY MOUTH 2 TIMES DAILY NEEDED FOR ANXIETY. Not Delegated - Psychiatry: Anxiolytics/Hypnotics Failed - 05/27/2020 1:40 PM Failed - This refill cannot be delegated Passed - Valid encounter within last 6 months Past Office Visits Recent Outpatient Visits 2 months ago Hypercholesterolemia [facility] - Jose Roberto Post MD 3 months ago Sore throat [facility] - Jose Roberto Post MD 4 months ago Attention deficit hyperactivity disorder (ADHD), combined type [facility] Jose Roberto Solomon MD 5 months ago ad terminal makeup operator (current) use of opiate analgesic [facility] Jose Roberto Solomon MD 7 months ago Generalized anxiety disorder [facility] Jose Roberto Solomon MD Upcoming Appointments INSULATION NOZZLEMAN - Recent and Past Visits Recent Visits Date Type Provider Dept 03/20/20 Office Visit Jose Roberto Carlson MD [facility] 02/20/20 Office Visit Jose Roberto Carlson MD [facility] 01/09/20 Office Visit Jose Roberto Carlson MD [facility] 12/19/19 Office Visit Jose Roberto Carlson MD [facility] 10/10/19 Office Visit Jose Roberto Carlson MD [facility] 08/08/19 Office Visit Jose Roberto Carlson MD [facility] 05/02/19 Office Visit Jose Roberto Carlson MD [facility] 03/30/19 Office Visit Jose Roberto Carlson MD [facility] Showing recent visits within past 460 days with a meds authorizing provider and meeting all other requirements Future Appointments No visits were found meeting these conditions. Showing future appointments within next 90 days with a meds authorizing provider and meeting all other requirements amphetamine-dextroamphetamine (ADDERALL XR) 10 MG CAPSULE SR 24 HR [Pharmacy Med Name: AMPHETAMINE/DEXTROAMPHETAMINE 10MG ER CAPSULE ER 24HR] 30 Cap 0 Sig: TAKE ONE (1) CAPSULE BY MOUTH IN THE MORNING Not Delegated - Psychiatry: Stimulants/ADHD Failed - 05/27/2020 1:40 PM Failed - Last BP in normal range BP Readings from Last 1 Encounters: 05/26/20 147/74 Failed - This refill cannot be delegated Passed - Valid encounter within last 6 months Past Office Visits Recent Outpatient Visits 2 months ago Hypercholesterolemia [facility] - Jose Roberto Post MD 3 months ago Sore throat [facility] - Jose Roberto Post MD 4 months ago Attention deficit hyperactivity disorder (ADHD), combined type [facility] - Jose Roberto Post MD 5 months ago FPC (current) use of opiate analgesic [facility] Jose Roberto Post MD 7 months ago Generalized anxiety disorder [facility] Jose Roberto Solomon MD Upcoming Appointments INSULATION NOZZLEMAN - Recent and Past Visits Recent Visits Date Type Provider Dept 03/20/20 Office Visit Jose Roberto Carlson MD [facility] 02/20/20 Office Visit Jose Roberto Carlson MD [facility] 01/09/20 Office Visit Jose Roberto Carlson MD [facility] 12/19/19 Office Visit Jose Roberto Carlson MD [facility] 10/10/19 Office Visit Jose Roberto Carlson MD [facility] 08/08/19 Office Visit Jose Roberto Carlson MD [facility] 05/02/19 Office Visit Jose Roberto Carlson MD [facility] 03/30/19 Office Visit Jose Roberto Carlson MD [facility] Showing recent visits within past 460 days with a meds authorizing provider and meeting all other requirements Future Appointments No visits were found meeting these conditions. Showing future appointments within next 90 days with a meds authorizing provider and meeting all other requirements gabapentin (NEURONTIN) 300 MG Capsule [Pharmacy Med Name: GABAPENTIN 300MG CAPSULE] 120 Cap 2 Sig: TAKE 1 CAPSULE BY MOUTH FOUR (4) TIMES DAILY Neurology: Anticonvulsants Passed - 05/27/2020 1:40 PM Passed - Valid encounter within last 12 months Past Office Visits Recent Outpatient Visits 2 months ago Hypercholesterolemia [facility] - Jose Roberto Post MD 3 months ago Sore throat [facility] Jose Roberto Post MD 4 months ago Attention deficit hyperactivity disorder (ADHD), combined type [facility] - Jose Roberto Post MD 5 months ago ad terminal makeup operator (current) use of opiate analgesic [facility] Jose Roberto Post MD 7 months ago Generalized anxiety disorder [facility] Jose Roberto Post MD Upcoming Appointments INSULATION NOZZLEMAN - Recent and Past Visits Recent Visits Date Type Provider Dept 03/20/20 Office Visit Jose Roberto Carlson MD [facility] 02/20/20 Office Visit Jose Roberto Carlson MD [facility] 01/09/20 Office Visit Jose Roberto Carlson MD [facility] 12/19/19 Office Visit Jose Roberto Carlson MD [facility] 10/10/19 Office Visit Jose Roberto Carlson MD [facility] 08/08/19 Office Visit CarlsonJose Roberto patel MD [facility] 05/02/19 Office Visit Jose Roberto Carlson MD [facility] 03/30/19 Office Visit Jose Roberto Carlson MD [facility] Showing recent visits within past 460 days with a meds authorizing provider and meeting all other requirements Future Appointments No visits were found meeting these conditions. Showing future appointments within next 90 days with a meds authorizing provider and meeting all other requirements NITIES PROFESSOR documented in this encounter Plan of Treatment Not on file documented as of this encounter Visit Diagnoses Diagnosis Generalized anxiety disorder Attention deficit hyperactivity disorder (ADHD), combined type documented in this encounter Additional Health Concerns Infection Onset Date Last Indicated Resolved Time COVID - 19 04/04/2023 04/04/2023 04/04/2023 5:37 PM CDT COVID - 19 08/14/2023 08/14/2023 08/24/2023 12:1 6 AM HUMANITIES PROFESSOR RSV 08/14/2023 08/14/2023 09/11/2023 12:1 6 AM HUMANITIES PROFESSOR COVID - 19 02/18/2024 02/18/2024 02/18/2024 5:32 PM CDT COVID - 19 08/11/2024 08/11/2024 08/11/2024 2:02 PM HUMANITIES PROFESSOR Influenza 08/11/2024 08/11/2024 08/18/2024 12:1 7 AM HUMANITIES PROFESSOR Assessment Noted Time PHQ-9 Depression Total Score: 0 02/20/20 20 8:11 AM CDT documented as of this encounter Care Teams [facility] Shift Lead Relationship Specialty Start Date End Date Jose Roberto Carlson MD PCP - General Family Medicine 10/03/18 10/19/21 Elzbieta Shelton PAC [address] [place] [address] PCP - General Physician Metrology Technician 10/28/21 10/28/21 Donnie Rene MD [address] [place] [address] PCP - General Internal Medicine 11/18/21 11/15/23 Provider, None MD PCP - General 11/16/23 08/30/24 Lesly Toribio DO 2 [facility] [address] [place] [address] PCP - General Family Medicine 08/31/24 Megan Davila, TRAFFIC COURT REFEREE, HULLER OPERATOR Nurse Practitioner Advanced Practice Nurse 03/24/17 Maynor Joy MD [address] [place] [address] Consulting Physician Orthopaedic Surgery 04/29/22 Serene Vega MD [address] [facility] [address] [place] [address] Consulting Physician Urology 05/08/22 documented as of this encounter
--- OUTSIDE RECORDS SUMMARY | 2024-11-18 13:39 | XMS_ITS | Encounter Summary ---
Author Organization [facility] Address [address] [place] [address] Phone Care Team Providers Care Utilization Coordinator Name Role Phone Megan Davila APRN, TUFTER Unavailable Jose Roberto Carlson MD Primary Care Provider [phone] Elzbieta Shelton Primary Care Provider + Donnie Rene MD Primary Care Provider [phone] Maynor Joy MD Unavailable Serene Vega MD Unavailable [phone] Provider, None Primary Care Provider Unavailabl e Lesly Toribio DO Primary Care Provider [phone] Reason for Visit * Reason Comments Medication Refill Encounter Details Date Type Department Care Team (Late st Contact Info) Description 04/01/2020 Refill [facility] - Family Medicine [facility] [address] [place] [address] Jose Roberto Carlson MD [address] [place] [address] Medication Refill Social History Tobacco Use Types [...] have Coronavirus / COVID-19? No / Unsure 03/20/2020 1:38 PM CDT documented as of this encounter Miscellaneous Notes * Telephone Encounter - Lizzy Yoo RN - 04/03/2020 11:11 AM CDT Medication routed to provider for review and approval of medication order(s) if appropriate. Requested Prescriptions Pending Prescriptions Disp Refills sertraline (ZOLOFT) 100 MG Tablet [Pharmacy Med Name: SERTRALINE HYDROCHLORIDE 100MG TABLET] 135 Tab 3 Sig: TAKE 1 & 1/2 TABLETS BY MOUTH EVERY DAY Not Delegated - Psychiatry: Antidepressants Failed - 04/01/2020 2:11 PM Failed - This refill cannot be delegated Passed - Valid encounter within last 12 months Past Office Visits Recent Outpatient Visits 2 weeks ago Hypercholesterolemia [facility] - Jose Roberto Post MD 1 month ago Sore throat [facility] Jose Roberto Solomon MD 2 months ago Attention deficit hyperactivity disorder (ADHD), combined type [facility] - Jose Roberto Post MD 3 months ago buttermaker (current) use of opiate analgesic [facility] Jose Roberto Solomon MD 5 months ago Generalized anxiety disorder [facility] Jose Roberto Solomon MD Upcoming Appointments WANIGAN CLERK - Recent and Past Visits Recent Visits Date Type Provider Dept 03/20/20 Office Visit Jose Roberto Carlson MD [facility] 02/20/20 Office Visit Jose Roberto Carlson MD [facility] 01/09/20 Office Visit Jose Roberto Carlson MD [facility] 12/19/19 Office Visit Carlson, MD [facility] 10/10/19 Office Visit Jose Roberto Carlson MD [facility] 08/08/19 Office Visit Jose Roberto Carlson MD [facility] 05/02/19 Office Visit Jose Roberto Carlson MD [facility] 03/30/19 Office Visit Jose Roberto Carlson MD [facility] Showing recent visits within past 460 days with a meds authorizing provider and meeting all other requirements Future Appointments No visits were found meeting these conditions. Showing future appointments within next 90 days with a meds authorizing provider and meeting all other requirements documented in this encounter Plan of Treatment Not on file documented as of this encounter Visit Diagnoses Diagnosis Severe episode of recurrent major depressive disorder, without psychotic features (HCC) documented in this encounter Additional Health Concerns Infection Onset Date Last Indicated Resolved Time COVID - 19 04/04/2023 04/04/2023 04/04/2023 5:37 PM CDT COVID - 19 08/14/2023 08/14/2023 08/24/2023 12:1 6 AM STACK MATCHER RSV 08/14/2023 08/14/2023 09/11/2023 12:1 6 AM STACK MATCHER COVID - 19 02/18/2024 02/18/2024 02/18/2024 5:32 PM CDT COVID - 19 08/11/2024 08/11/2024 08/11/2024 2:02 PM STACK MATCHER Influenza 08/11/2024 08/11/2024 08/18/2024 12:1 7 AM STACK MATCHER Assessment Noted Time PHQ-9 Depression Total Score: 0 02/20/20 20 8:11 AM CDT documented as of this encounter Care Teams Utilization Coordinator Relationship Specialty Start Date End Date Jose Roberto Carlson MD PCP - General Family Medicine 10/03/18 10/19/21 Elzbieta Shelton PAC [address] [place] [address] PCP - General Physician Bench Boring Machine Operator 10/28/21 10/28/21 Donnie Rene MD [address] [place] [address] PCP - General Internal Medicine 11/18/21 11/15/23 Provider, None [place] PCP - General 11/16/23 08/30/24 Lesly Toribio DO 2 [facility]. [address] [place] [address] PCP - General Family Medicine 08/31/24 Megan Davila, BOX STAMPER, TUFTER Nurse Practitioner Advanced Practice Nurse 03/24/17 Maynor Joy MD [address] [place] [address] Consulting Physician Orthopaedic Surgery 04/29/22 Serene Vega MD #2 [facility] [address] [place] [address] Consulting Physician Urology 05/08/22 documented as of this encounter
--- OUTSIDE RECORDS SUMMARY | 2024-11-18 13:39 | XMS_ITS | Clinical Summary ---
Author Organization [facility] Address [address] [place] [address] Care Team Providers Care Telephone Solicitor Name Role Phone Paulette Blankenship MD Primary Care Provider [phone] Source Comments [facility],non-owned Affiliates and Associated Physician Practices is amultiple site organization consisting of ambulatory clinics and hospital sitesin [place], [place], [place] and [place]. This disclosure is being madepursuant to the Care Everywhere program and may not contain all information available regarding this patient. Last updated 18.[facility] Allergies Active Allergy Reactions Criticality Noted Date Comments Bee Venom Anaphylaxis,Angioedema High 05/06/2015 Tramadol Shortness of Breath,Other High 05/06/2015 Loss of consciousness Active Problems Problem Noted Date Diagnosed Date Viral hepatitis C without hepatic coma 6 Overview (10/04/2017): Genotype Diagnosed 2013 Naive to therapy 07/10/15 Fibroscan 7.7 kPa Crohn's disease without complication 05/06/2015 Overview (10/04/2017): Diagnosed 2007 Anxiety disorder 05/06/2015 Other intervertebral disc degeneration, lumbar r egion 05/06/2015 Overview (10/04/2017): L1-5 Dorsalgia 05/06/2015 Other chronic pain 05/06/2015 Hematuria 05/06/2015 Overview (10/04/2017): Negative cystoscopy Sciatica 05/06/2015 Pure hypercholesterolemia 05/06/2015 Polyneuropathy 05/06/2015 Major depressive disorder, single episode 2014 Encounters Date Type Department Care Team Description 10/09/2024 Travel from Last 3 Months Family History Medical History Relation Name Comments None Known Brother 1 Status: Alive None Known Brother 2 Status: Alive Diabetes Father Status: Alive Migraine Father Heart Disease Mother Status: Alive Cancer - Breast Paternal Grandmother Unsu re age of onset. None Known Sister 1 Status: Alive None Known Sister 2 Status: Alive None Known Sister 3 Status: Alive Relation Name Status Comments Brother 1 Brother 2 Father Mother Paternal Grandmother Sister 1 Sister 2 Sister 3 Social History Tobacco Use Types Packs/Day Years Used Date Smoking Tobacco: Every Day Cigarettes Smokeless Tobacco: Never Alcohol Use Standard Drinks/Week Comments No 0 (1 standard drink = 0.6 oz pur e alcohol) AUDIT-C Answer Date Recorded Q1: How often do you have a drink containing alc ohol? Never 03/03/2022 Average Number of Drinks Not on file 022 Frequency of Binge Drinking Not on file 02/04 Comments No Sex and Gender Information Value Date Recorded Sex Assigned at Not on file Legal Sex Female 6:01 PM QUALITY INTERN Gender Identity Not on file Sexual Orientation Not on file Last Filed Vital Signs Vital Sign Reading Time Taken Comments Blood Pressure 117/64 03/03/2022 6:18 PM CDT Pulse 82 03/03/2022 6:18 PM CDT Temperature 36.1 C (97 F) 03/03/2022 6:18 PM CDT Respiratory Rate 18 03/03/2022 6:18 PM CDT Oxygen Saturation 99% 03/03/2022 6:18 PM CDT Inhaled Oxygen Concentration - - Weight 68 kg (150 lb) 03/03/2022 6:18 PM CDT Height 154.9 cm (5' 1 ) 03/03/2022 6:18 PM CDT Body Mass Index 28.34 03/03/2022 6:18 PM CDT Plan of Treatment Upcoming Encounters Date Type Department Care Team (Late st Contact Info) Description 11/22/2024 11:00 AM CDT Office Visit [facility] - Neurosurgery [address] [facility], [place]), [place] [address] Kamran Garland MD [address] [place] [address] Health Maintenance Due Date Last Done Comments COLOGUARD (AGES 45-75) - COLON CA SCREENING 1967 COLON MONITORING 1967 COLONOSCOPY - COLON CA SCREENING 1967 CT COLONOGRAPHY - COLON CA SCREENING 1967 Colorectal Cancer Screening 1967 FIT - COLON CA SCREENING 1967 FLEX SIG - COLON CA SCREENING 1967 LIPID TESTING 1967 MAMMOGRAM 1967 PAP SMEAR 1967 HIV SCREENING 1982 DTAP/TDAP/TD VACCINES (1 - Tdap) 1986 HEPATITIS B VACCINE (1 of 3 - 19+ 3-dose series) 1986 PNEUMOCOCCAL VACCINE 50+ (1 of 2 - PCV) 1986 ZOSTER VACCINE (1 of 2) 2017 COVID-19 VACCINE (3 - season) 2024 10/03/2021, 09/08/2021 DEPRESSION SCREENING 07/05/2024 INFLUENZA VACCINE (Season Ended) 2025 03/30/2019, 05/05/2018 HEPATITIS C SCREENING Completed 08/20/2015 , 07/10/2015, 07/10/2015, Additional history exists HIB VACCINE Aged Out No longer eligi ble based on patient's age to complete this topic HPV VACCINE Aged Out No longer eligi ble based on patient's age to complete this topic MENINGOCOCCAL (Group B) VACCINE SHARED DECISION-MAKING Aged Out No longer eligible based on patient's age to complete this topic MENINGOCOCCAL GROUPS A/C/Y/W VACCINE Aged Out No longer eligible based on patient's age to complete this topic Insurance [employer] [address] [place] [id number] Care Teams Telephone Solicitor Relationship Specialty Start Date End Date Paulette Blankenship MD PCP - General 11/06/14
--- OUTSIDE RECORDS SUMMARY | 2024-11-18 13:39 | XMS_ITS | Encounter Summary ---
Author Organization [facility] Address [address] [place] [address] Phone Care Team Providers Care Golf Sales Manager Name Role Phone Megan Davila APRN, AUTOMOTIVE QUALITY MANAGER Unavailable Jose Roberto Carlson MD Primary Care Provider [phone] Elzbieta Shelton Primary Care Provider + Donnie Rene MD Primary Care Provider [phone] Maynor Joy MD Unavailable Serene Vega MD Unavailable [phone] Provider, None Primary Care Provider Unavailabl e Lesly Toribio DO Primary Care Provider [phone] Reason for Visit * Reason Comments Medication Refill Encounter Details Date Type Department Care Team (Late st Contact Info) Description 03/18/2020 Refill [facility] - [facility] [address] [place] [address] Jose Roberto Carlson MD [address] [place] [address] Medication Refill Social History Tobacco Use Types [...] encounter Miscellaneous Notes * Telephone Encounter - Dalia Back RN - 03/19/2020 4:59 PM CDT Medication failed the protocol, provider to review and approve the medication order. Requested Prescriptions Pending Prescriptions Disp Refills amphetamine-dextroamphetamine (ADDERALL XR) 10 MG CAPSULE SR 24 HR [Pharmacy Med Name: AMPHETAMINE/DEXTROAMPHETAMINE 10MG ER CAPSULE ER 24HR] 30 Cap 0 Sig: TAKE ONE (1) CAPSULE BY MOUTH IN THE MORNING There is no refill protocol information for this order documented in this encounter Plan of Treatment Not on file documented as of this encounter Visit Diagnoses Diagnosis Attention deficit hyperactivity disorder (ADHD), combined type documented in this encounter Additional Health Concerns Infection Onset Date Last Indicated Resolved Time COVID - 19 04/04/2023 04/04/2023 04/04/2023 5:37 PM CDT COVID - 19 08/14/2023 08/14/2023 08/24/2023 12:1 6 AM FABRICATION OPERATOR RSV 08/14/2023 08/14/2023 09/11/2023 12:1 6 AM FABRICATION OPERATOR COVID - 19 02/18/2024 02/18/2024 02/18/2024 5:32 PM CDT COVID - 19 08/11/2024 08/11/2024 08/11/2024 2:02 PM FABRICATION OPERATOR Influenza 08/11/2024 08/11/2024 08/18/2024 12:1 7 AM FABRICATION OPERATOR Assessment Noted Time PHQ-9 Depression Total Score: 0 02/20/20 8:11 AM CDT documented as of this encounter Care Teams Golf Sales Manager Relationship Specialty Start Date End Date Jose Roberto Carlson MD PCP - General Family Medicine 10/03/18 10/19/21 Elzbieta Shelton [address] [place] [address] PCP - General Physician Pad Cutter 10/28/21 10/28/21 Donnie Rene MD [address] [place] [address] PCP - General Internal Medicine 11/18/21 11/15/23 Provider, [facility] PCP - General 11/16/23 08/30/24 Lesly Toribio DO 2 [facility] [address] [facility] [address] [place] [address] PCP - General Family Medicine 08/31/24 Megan Davila APRN, AUTOMOTIVE QUALITY MANAGER Nurse Practitioner Advanced Practice Nurse 03/24/17 Maynor Joy MD [address] [place] [address] Consulting Physician Orthopaedic Surgery 04/29/22 Serene Vega MD [address] [facility] [address] [place] [address] Consulting Physician Urology 05/08/22 documented as of this encounter
--- OUTSIDE RECORDS SUMMARY | 2024-11-18 13:39 | XMS_ITS | Encounter Summary ---
Author Organization [facility] Address [address] [place] [address] Phone Care Team Providers Care Fire Alarm Installer Name Role Phone Megan Davila APRN, NEEDLE VALVE OPERATOR Unavailable Jr Carlson MD Primary Care Provider [phone] Elzbieta Shelton Primary Care Provider + Donnie Rene MD Primary Care Provider [phone] Maynor Joy MD Unavailable Serene Vega MD Unavailable [phone] Provider, None Primary Care Provider Unavailabl e Lesly Toribio DO Primary Care Provider [phone] Reason for Visit * Reason Comments Medication Refill Encounter Details Date Type Department Care Team (Late st Contact Info) Description 04/23/2020 Refill [facility] - Family Medicine [facility] [address] [place] [address] Jr Carlson MD [address] [place] [address] Medication Refill Social History Tobacco Use Types [...] encounter Miscellaneous Notes * Telephone Encounter - Sydnee Fermin RN - 04/25/2020 12:52 PM CDT Routing to provider per protocol as medication(s) can not be signed by a nurse for approval. Medication Dispense History (from 12/27/2019 to 04/23/2020) Amphetamine-Dextroamphetamine Dispensed Written Strength Quantity Refills Days Supply Provider Pharmacy Amphetamine Salt Combo XR 03/21/2020 03/20/2020 10 MG 30 0 30 , JR CARLSON MD [facility] Amphetamine Salt Combo XR 02/08/2020 12/15/2019 10 MG 30 0 30 , JR CARLSON MD [facility]. External Sources Source Last Checked for Updates Status [facility] 04/23/2020 2:59 PM History Response Filed documented in this encounter Plan of Treatment Not on file documented as of this encounter Visit Diagnoses Diagnosis Attention deficit hyperactivity disorder (ADHD), combined type documented in this encounter Additional Health Concerns Infection Onset Date Last Indicated Resolved Time COVID - 19 04/04/2023 04/04/2023 04/04/2023 5:37 PM CDT COVID - 19 08/14/2023 08/14/2023 08/24/2023 12:1 6 AM MEDICAL TRANSCRIPTION SUPERVISOR RSV 08/14/2023 08/14/2023 09/11/2023 12:1 6 AM MEDICAL TRANSCRIPTION SUPERVISOR COVID - 19 02/18/2024 02/18/2024 02/18/2024 5:32 PM CDT COVID - 19 08/11/2024 08/11/2024 08/11/2024 2:02 PM MEDICAL TRANSCRIPTION SUPERVISOR Influenza 08/11/2024 08/11/2024 08/18/2024 12:1 7 AM MEDICAL TRANSCRIPTION SUPERVISOR Assessment Noted Time PHQ-9 Depression Total Score: 0 02/20/20 8:11 AM CDT documented as of this encounter Care Teams Fire Alarm Installer Relationship Specialty Start Date End Date Jr Carlson MD PCP - General Family Medicine 10/03/18 10/19/21 Elzbieta Shelton PAC [address] [place] [address] PCP - General Physician Assistant Case Manager 10/28/21 10/28/21 Donnie Rene MD [address] [place] [address] PCP - General Internal Medicine 11/18/21 11/15/23 Provider, [facility] PCP - General 11/16/23 08/30/24 Lesly Toribio DO [address] [address] PCP - General Family Medicine 08/31/24 Megan Davila, LOG PROCESSOR OPERATOR, NEEDLE VALVE OPERATOR Nurse Practitioner Advanced Practice Nurse 03/24/17 Maynor Joy MD [address] [facility] [place] [address] Consulting Physician Orthopaedic Surgery 04/29/22 Serene Vega MD [address] [address] Consulting Physician Urology 05/08/22 documented as of this encounter
--- OUTSIDE RECORDS SUMMARY | 2024-11-18 13:39 | XMS_ITS | Continuity of Care Document ---
Author Organization [facility] Address [address] [place] [address] Phone Care Team Providers Care Compressor Repairer Name Role Phone Jo Ann Saunders NP Unavailable Unavailable Allergies, Adverse Reactions, Alerts Substance Reaction Status Criticality No Known allergies Medications Medication Instructions Dosage Effective Dates (start - stop) Status Comments hydrocodone-acetaminop hen 5 mg-500 mg tablet take 1 tablet by oral route every 6 hours as needed for pain - No Longer Active diclofenac potassium 50 mg tablet take 1 tablet (50MG) by oral route 3 times every day 50 MG - No Longer Active citalopram 20 mg tablet take 1 tablet (20MG) by oral route every day 20 MG - No Longer Active cyclobenzaprine 10 mg tablet take 1 tablet (10MG) by oral route every 8 hours prn 10 MG No Longer Active Vitamin D2 50,000 unit capsule take 1 capsule ([id number]) by oral route every week - No Longer Active Advance Directives Directive Yes / No Effective Date File Name No Information Encounters Encounter Description Practice Location Reason(s) For Visit Diagnoses Date Provider Providers Copied on Encounter [facility], [address], [place], [place], [address] , tel: [phone] [facility] No Information 2-[address]. [address], [address], [place], [place], [address] . tel: [phone] [facility], [address], [place], [place], [address] , tel: [phone] [facility] No Information 3 Chip [address]. [address] , [facility] [address], [place], [place], [address] . tel: [phone] [facility], [address], [place], [place], [address] , tel: [phone] [facility] No Information 3 Chip Jo [address]. [address] , [address], [place], [place], [address] . tel: [phone] [facility], [address], [place], [place], [address] , tel: [phone] [facility] sciatica (chief complaint)U TI (chief complaint)S moke (chief complaint) SciaticaTobacco use disorderHEMATURIA NOS [address] , [facility] [address], [place], [place], [address] . tel: [phone] Referring Provider: David Patel, [address] [place] [address] [address], [place], [address] . tel:[phone] [facility], [address], [place], [place], [address] , tel: [phone] [facility] preventive care (chief complaint)s ciatica (chief complaint)c hrons disease (chief complaint)m ood swings (chief complaint)w eight gain (chief complaint)w ell woman (chief complaint) Visit for preventive health examinationCrohns diseaseSciaticaMood swingsSmokerWeight gainLipid screeningHematuriaNE ED FOR PROPHYLACTIC VACCINATION WITH COMBINED [id number]-POLANTT-L ERTUSSIS (DTP) (DTAP) VACCINERoutine general medical examination at a health care facilityDepressive disorder, not elsewhere classified 0 [address] , [address], [place], [place], [address] , . tel: [phone] Referring Provider: David Patel, [address] [place] [address] [address], [place], [address] . tel:[phone] Family History Family Member Type Diagnosis Age At Onset Father Problem (finding) diabetes melli tus in first degree relative Father Problem (finding) alcoholism Mother Problem (finding) coronary arterioscleros is Father Problem (finding) hypertension Mother Problem (finding) Headaches Immunizations Vaccine Date Status Comments Tdap (Adacel r) administered Source: New Immunization Record Payers Payer name Insurance type Covered libertarian ID Authorkyle flores(s) N INC [id number] Social History Type Description Quantity Date Captured Comments Sex Female Smoking Status No Information Chief Complaint And Reason For Visit No Information Reason For Referral Reason For Referral No Information Plan Of Treatment Date Type Action Status Goal Tobacco cessation counseling ORD History Of Present Illness Encounter Date Complaint History Of Prese nt Illness No Information Functional Status Date Functional Assessmen t No Information Instructions Date Instruction Additional Infor adonay Disease process Heart healthy diet,e xercise, encouraged to stop use of tobacco. Assessments Type Assessment Date No Information Patient Care Teams Name Effective Dates (start - stop) Status Members No Information
--- OUTSIDE RECORDS SUMMARY | 2024-11-18 13:39 | XMS_ITS | Encounter Summary ---
Author Organization [facility] Address [address] [place] [address] Phone Care Team Providers Care Range Scientist Name Role Phone Megan Davila APRN, FRANCHISE DEVELOPMENT MANAGER Unavailable Jose Roberto Carlson MD Primary Care Provider [phone] Elzbieta Shelton Primary Care Provider + Donnie Rene MD Primary Care Provider [phone] Maynor Joy MD Unavailable Serene Vega MD Unavailable [phone] Provider, None Primary Care Provider Unavailabl e Lesly Toribio DO Primary Care Provider [phone] Reason for Visit * Reason Comments Medication Refill Encounter Details Date Type Department Care Team (Late st Contact Info) Description 05/13/2020 [facility] [address] [place] [id number] Jose Roberto Carlson MD [address] [place] [address] Medication Refill Social History Tobacco Use Types [...] Telephone Encounter - Sandra Coronado RN - 05/14/2020 12:09 PM CST The original prescription was reordered on 05/13/2020 by Jose Roberto Carlson MD INVASIVE documented in this encounter Plan of Treatment Not on file documented as of this encounter Visit Diagnoses Diagnosis Generalized anxiety disorder documented in this encounter Additional Health Concerns Infection Onset Date Last Indicated Resolved Time COVID - 19 04/04/2023 04/04/2023 04/04/2023 5:37 PM CDT COVID - 19 08/14/2023 08/14/2023 08/24/2023 12:1 6 AM RN INVASIVE RSV 08/14/2023 08/14/2023 09/11/2023 12:1 6 AM RN INVASIVE COVID - 19 02/18/2024 02/18/2024 02/18/2024 5:32 PM CDT COVID - 19 08/11/2024 08/11/2024 08/11/2024 2:02 PM RN INVASIVE Influenza 08/11/2024 08/11/2024 08/18/2024 12:1 7 AM RN INVASIVE Assessment Noted Time PHQ-9 Depression Total Score: 0 02/20/20 8:11 AM CDT documented as of this encounter Care Teams Range Scientist Relationship Specialty Start Date End Date Jose Roberto Carlson MD PCP - General Family Medicine 10/03/18 10/19/21 Elzbieta Shelton [address] [place] [address] PCP - General Physician Sensor Operator 10/28/21 10/28/21 Donnie Rene MD [address] [place] [address] PCP - General Internal Medicine 11/18/21 11/15/23 Provider, None [place] PCP - General 11/16/23 08/30/24 Lesly Toribio DO 2 [facility] [address] [place] [address] PCP - General Family Medicine 08/31/24 Megan Davila, MAILROOM ASSOCIATE, FRANCHISE DEVELOPMENT MANAGER Nurse Practitioner Advanced Practice Nurse 03/24/17 Maynor Joy MD [address] [place] [address] Consulting Physician Orthopaedic Surgery 04/29/22 Serene Vega MD [address] [facility] [address] [place] [address] Consulting Physician Urology 05/08/22 documented as of this encounter
--- OUTSIDE RECORDS SUMMARY | 2024-11-18 13:39 | XMS_ITS | Clinical Summary ---
Author Organization [facility] Address [address] [place] [address] Care Team Providers Care Control Room Tender Name Role Phone Rigoberto Montejo RN Unavailable UnavailMagaly Raymond RN Unavailable Unavailab Donnie Raymond MD Primary Care Provider [phone] Allergies Active Allergy Reactions Criticality Noted Date [...] Lumbar radiculopathy 09/25/2019 Attention deficit disorder 04/22/2019 terminal superintendent (current) use of opiate analgesic 07/2018 Tobacco [...] Pneumococcal Conjugate PCV 13 07/05/2016 Tdap 05/05/2018,09/06/2012 Surgical History Surgery Date Site/Laterality Comments TOTAL ABDOMINAL HYSTERECTOMY Hysterectomy, total APPENDECTOMY Medical History Medical History Date Comments Arthritis Arthritis; Comme nts: CCB 04/20/2014 - Malignant neoplasm of cervix (HCC) Cancer, cervical; Comments: CCB 04/20/2014 - Anxiety Crohn's disease (HCC) Low back pain Family History Medical History Relation Name Comments Diabetes Father Diabetes mellit us; Breast cancer Maternal Grandmother Cancer , breast; Heart disease Mother Cardiovascular disease; Migraines Mother Migraines; Relation Name Status Comments Father Maternal Grandmother Mother Social History Tobacco Use Types Packs/Day Years [...] on file Legal Sex Female 8:18 AM PROMPT CARE RN Gender Identity Not on file Sexual Orientation Not on file Obstetrics History Last Filed Vital Signs Vital Sign Reading Time Taken Comments Blood Pressure 131/76 08/24/2023 4:40 PM PROMPT CARE RN Pulse 106 08/24/2023 4:40 PM PROMPT CARE RN Temperature 36.9 C (98.5 F) 08/24/2023 4:40 PM PROMPT CARE RN Respiratory Rate 18 08/24/2023 4:40 PM PROMPT CARE RN Oxygen Saturation 97% 08/24/2023 4:40 PM PROMPT CARE RN Inhaled Oxygen Concentration - - Weight 81.6 kg (180 lb) 08/24/2023 4:40 PM PROMPT CARE RN Height 154.9 cm (5' 1 ) 08/24/2023 4:40 PM PROMPT CARE RN Body Mass Index 34.01 08/24/2023 4:40 PM PROMPT CARE RN Plan of Treatment Health Maintenance Due Date Last Done Comments Breast Cancer Screening-Mammogram 1967 Colon Cancer Screening-Colonoscopy 1967 Regular Well Visit/Exam 18-64 1985 Pneumococcal vaccine <65 (2 of 2 - PPSV23) 08/30/2016 07/05/2016 Zoster Vaccine (1 of 2) 2017 Depression Screening 12/14/2020 12/15/2019, 12/15/2019, 09/25/2019, Additional history exists Covid-19 Vaccine (3 - 2023-2 5 season) 2024 10/03/2021, 09/08/2021 Influenza Vaccine (Season Ended) 2025 03/30/20 19, 05/05/2018 DTaP/Tdap/Td Vaccine (3 - Td or Tdap) 05/05/2028 05/05/2018, 09/06/2012 Hepatitis C Screening Completed 07/10/2015 Goals Goal Patient Goal Type Associated Problems Recent Progress Patient-Stated? Author [facility] No change(2019 10:42 AM CDT) Rigoberto Helton, RN Note: Patient will report that the pain management medication regimen achieves comfort-function goal without the occurrence of adverse effects. Insurance [employer] [facility] [place] [address] [address] [place] [address] Care Teams Control Room Tender Relationship Specialty Start Date End Date Donnie Rene MD PCP - General Internal Medicine 01/07/22 Rigoberto Montejo, RN Registered Nurse 10/18/17 Magaly Sanchez, RN Registered Nurse Pain Management 01/11/18
--- OUTSIDE RECORDS SUMMARY | 2024-11-18 13:39 | XMS_ITS | Encounter Summary ---
Author Organization [facility] Address [address] [place] [address] Phone Care Team Providers Care Playroom Attendant Name Role Phone Megan Davila APRN, BOW REPAIRER CUSTOM Unavailable Jose Roberto Carlsno MD Primary Care Provider [phone] Elzbieta Shelton Primary Care Provider + Donnie Rene MD Primary Care Provider [phone] Maynor Joy MD Unavailable Serene Vega MD Unavailable [phone] Provider, None Primary Care Provider Unavailabl e Lesly Toribio DO Primary Care Provider [phone] Reason for Visit * Reason Comments Medication Refill Encounter Details Date Type Department Care Team (Late st Contact Info) Description 06/24/[address] [facility] - Family Medicine [facility] [address] [place] [address] Jose Roberto Carlson MD [address] [place] [address] Medication Refill Social History Tobacco Use Types [...] have Coronavirus / COVID-19? No / Unsure 06/27/2020 7:41 AM ENTRY SPECIALIST documented as of this encounter Miscellaneous Notes * Telephone Encounter - Sandra Coronado RN - 06/24/2020 12:11 PM CST [place] last fill 05/29/20 - next fill 06/27/20 (a day early due to holiday) Medication failed the protocol, provider to review and approve the medication order if appropriate. Requested Prescriptions Pending Prescriptions Disp Refills amphetamine-dextroamphetamine (ADDERALL XR) 10 MG CAPSULE SR 24 HR [Pharmacy Med Name: AMPHETAMINE/DEXTROAMPHETAMINE 10MG ER CAPSULE ER 24HR] 30 Cap 0 Sig: TAKE ONE (1) CAPSULE BY MOUTH IN THE MORNING Not Delegated - Psychiatry: Stimulants/ADHD Failed - 06/24/2020 12:09 PM Failed - This refill cannot be delegated Passed - Valid encounter within last 6 months Past Office Visits Recent Outpatient Visits 2 weeks ago RUQ abdominal pain [facility] - Jose Roberto Post MD 3 months ago Hypercholesterolemia [facility] - Jose Roberto Post MD 4 months ago Sore throat [facility] - Family Medicine - Jose Roberto Post MD 5 months ago Attention deficit hyperactivity disorder (ADHD), combined type [facility] Medical [facility] Family Medicine - Jose Roberto Post MD 6 months ago terminal clerk (current) use of opiate analgesic [facility] Medical [facility] - Family Medicine Jose Roberto Solomon MD Upcoming Appointments Future Appointments In [address] Nuclear Medicine, [facility] LINOLEUM TILE FLOOR LAYER - Recent and Past Visits Recent Visits Date Type Provider Dept 06/10/20 Office Visit Jose Roberto Carlson MD [facility] 03/20/20 Office Visit Jose Roberto Carlson MD [facility] 02/20/20 Office Visit Jose Roberto Carlson, MD [facility] 01/09/20 Office Visit Jose Roberto Carlson MD [facility] 12/19/19 Office Visit Jose Roberto Carlson MD [facility] 10/10/19 Office Visit Jose Roberto Carlson MD [facility] 08/08/19 Office Visit Jose Roberto Carlson MD [facility] 05/02/19 Office Visit Jose Roberto Carlson MD [facility] 03/30/19 Office Visit Jose Roberto Carlson, [facility] Showing recent visits within past 460 days with a meds authorizing provider and meeting all other requirements Future Appointments No visits were found meeting these conditions. Showing future appointments within next 90 days with a meds authorizing provider and meeting all other requirements Passed - Last BP in normal range BP Readings from Last 1 Encounters: 06/10/20 126/72 ALPRAZolam (XANAX) 1 MG Tablet [Pharmacy Med Name: ALPRAZOLAM 1MG TABLET] 30 Tab 0 Sig: TAKE 1 TAB BY MOUTH 2 TIMES DAILY NEEDED FOR ANXIETY. Not Delegated - Psychiatry: Anxiolytics/Hypnotics Failed - 06/24/2020 12:09 PM Failed - This refill cannot be delegated Passed - Valid encounter within last 6 months Past Office Visits Recent Outpatient Visits 2 weeks ago RUQ abdominal pain [facility] Medical [facility] - Family Medicine - Jose Roberto Post MD 3 months ago Hypercholesterolemia [facility] Family Medicine - Jose Roberto Post MD 4 months ago Sore throat [facility] Family [facility] - Jose Roberto Post MD 5 months ago Attention deficit hyperactivity disorder (ADHD), combined type [facility] Medical [facility] Family Medicine Jose Roberto Solomon MD 6 months ago senior living (current) use of opiate analgesic [facility] Medical [facility] Family Medicine Jose Roberto Solomon MD Upcoming Appointments Future Appointments In [address] Nuclear Medicine, [facility] LINOLEUM TILE FLOOR LAYER - Recent and Past Visits Recent Visits Date Type Provider Dept 06/10/20 Office Visit Jose Roberto Carlson, MD [facility] 03/20/20 Office Visit Jose Roberto Carlson, MD [facility] 02/20/20 Office Visit Jose Roberto Carlson, MD [facility] 01/09/20 Office Visit Jose Roberto Carslon, MD [facility] 12/19/19 Office Visit Jose Roberto Carlson, MD [facility] 10/10/19 Office Visit Jose Roberto Carlson, MD [facility] 08/08/19 Office Visit Jose Roberto Carlson, MD [facility] 05/02/19 Office Visit Jose Roberto Carlson, MD [facility] 03/30/19 Office Visit Jose Roberto Carlson, [facility] Showing recent visits within past 460 days with a meds authorizing provider and meeting all other requirements Future Appointments No visits were found meeting these conditions. Showing future appointments within next 90 days with a meds authorizing provider and meeting all other requirements Y SPECIALIST documented in this encounter Plan of Treatment Not on file documented as of this encounter Visit Diagnoses Diagnosis Attention deficit hyperactivity disorder (ADHD), combined type Generalized anxiety disorder documented in this encounter Additional Health Concerns Infection Onset Date Last Indicated Resolved Time COVID - 19 04/04/2023 04/04/2023 04/04/2023 5:37 PM CDT COVID - 19 08/14/2023 08/14/2023 08/24/2023 12:1 6 AM ENTRY SPECIALIST RSV 08/14/2023 08/14/2023 09/11/2023 12:1 6 AM ENTRY SPECIALIST COVID - 19 02/18/2024 02/18/2024 02/18/2024 5:32 PM CDT COVID - 19 08/11/2024 08/11/2024 08/11/2024 2:02 PM ENTRY SPECIALIST Influenza 08/11/2024 08/11/2024 08/18/2024 12:1 7 AM ENTRY SPECIALIST Assessment Noted Time PHQ-9 Depression Total Score: 0 02/20/20 8:11 AM CDT documented as of this encounter Care Teams Playroom Attendant Relationship Specialty Start Date End Date Jose Roberto Carlson MD PCP - General Family Medicine 10/03/18 10/19/21 Elzbieta Shelton PAC [address] [place] [address] PCP - General Physician Waste Management Recycling Technician 10/28/21 10/28/21 Donnie Rene MD [address] [place] [address] PCP - General Internal Medicine 11/18/21 11/15/23 Provider, [facility] PCP - General 11/16/23 08/30/24 Lesly Toribio DO 2 [facility] [address] [place] [address] PCP - General Family Medicine 08/31/24 Megan Davila APRN, BOW REPAIRER CUSTOM Nurse Practitioner Advanced Practice Nurse 03/24/17 Maynor Joy MD [address] [place] [address] Consulting Physician Orthopaedic Surgery 04/29/22 Serene eVga MD [address]2 [facility] [address] [place] [address] Consulting Physician Urology 05/08/22 documented as of this encounter
--- OUTSIDE RECORDS SUMMARY | 2024-11-18 13:40 | XMS_ITS | Encounter Summary ---
Author Organization [facility] Address [address] [place] [address] Phone Care Team Providers Care Project Finance Analyst Name Role Phone Meagn Davila APRN, TAIL DOGGER Unavailable Jose Roberto Carlson MD Primary Care Provider [phone] Elzbieta Shelton Primary Care Provider + Donnie Rene MD Primary Care Provider [phone] Maynor Joy MD Unavailable Serene Vega MD Unavailable [phone] Provider, None Primary Care Provider Unavailabl e Lesly Toribio DO Primary Care Provider [phone] Reason for Visit * Reason Comments Medication Refill Encounter Details Date Type Department Care Team (Late st Contact Info) Description 09/16/2020 Refill [facility] Group - Family Medicine [facility] [address] [place] [address] Elzbieta Shelton PAC [address] [place] [address] Medication Refill Social History Tobacco Use Types [...] have Coronavirus / COVID-19? No / Unsure 09/06/2020 2:29 PM AUTOMOBILE BODY WORKER documented as of this encounter Miscellaneous Notes * Telephone Encounter - Guerda Do RN - 09/16/2020 12:31 PM CDT Per nursing clinical judgement, provider to review and approve the medication(s) order(s) if appropriate. Last OV 09/06/20, F/U None, Last Rx 09/06/20 Guerda RN Requested Prescriptions Pending Prescriptions Disp Refills tiZANidine (ZANAFLEX) 2 MG Tablet [Pharmacy Med Name: TIZANIDINE HCL 2MG TABLET] 30 Tablet 0 Sig: TAKE 1-2 TABLETS BY MOUTH EVERY 6 HOURS NEEDED FOR MUSCLE SPASM Not Delegated - Analgesics: Muscle Relaxants Failed - 09/16/2020 11:26 AM Failed - This refill cannot be delegated Passed - Valid encounter within last 6 months Past Office Visits Recent Outpatient Visits 1 week ago Spinal stenosis of lumbar region, unspecified whether neurogenic claudication present [facility] - [facility] - Elzbieta Suárez PAC 3 months ago RUQ abdominal pain [facility] - Family [facility] - Jose Roberto Post MD 6 months ago Hypercholesterolemia [facility] - Family Medicine - Jose Roberto Post MD 6 months ago Sore throat [facility] - Jose Roberto Post MD 8 months ago Attention deficit hyperactivity disorder (ADHD), combined type [facility] - Family [facility] - Jose Roberto Post MD Upcoming Appointments Future Appointments In 2 days [facility] JAVA DEVELOPER - Recent and Past Visits Recent Visits Date Type Provider Dept 09/06/20 Office Visit Nikita Elzbieta Mares, MAR[facility] 06/10/20 Office Visit Jose Roberto Carlson MD [facility] 03/20/20 Office Visit Jose Roberto Carlson, [facility] 02/20/20 Office Visit Jose Roberto Carlson, [facility] 01/09/20 Office Visit Jose Roberto Carlson MD [facility] 12/19/19 Office Visit Jose Roberto Carlson MD [facility] 10/10/19 Office Visit Jose Roberto Carlson MD [facility] 08/08/19 Office Visit Jose Roberto Carlson, [facility] Showing recent visits within past 460 days with a meds authorizing provider and meeting all other requirements Future Appointments No visits were found meeting these conditions. Showing future appointments within next 90 days with a meds authorizing provider and meeting all other requirements documented in this encounter Plan of Treatment Not on file documented as of this encounter Visit Diagnoses Not on filedocumented in this encounter Additional Health Concerns Infection Onset Date Last Indicated Resolved Time COVID - 19 04/04/2023 04/04/2023 04/04/2023 5:37 PM CDT COVID - 19 08/14/2023 08/14/2023 08/24/2023 12:1 6 AM AUTOMOBILE BODY WORKER RSV 08/14/2023 08/14/2023 09/11/2023 12:1 6 AM AUTOMOBILE BODY WORKER COVID - 19 02/18/2024 02/18/2024 02/18/2024 5:32 PM CDT COVID - 19 08/11/2024 08/11/2024 08/11/2024 2:02 PM AUTOMOBILE BODY WORKER Influenza 08/11/2024 08/11/2024 08/18/2024 12:1 7 AM AUTOMOBILE BODY WORKER Assessment Noted Time PHQ-9 Depression Total Score: 0 02/20/20 20 8:11 AM CDT documented as of this encounter Care Teams Project Finance Analyst Relationship Specialty Start Date End Date Jose Roberto Carlson MD PCP - General Family Medicine 10/03/18 10/19/21 Elzbieta Shelton PAC [address] [place] [address] PCP - General Physician Oracle Technical Developer 10/28/21 10/28/21 Donnie Rene MD [address] [place] [address] PCP - General Internal Medicine 11/18/21 11/15/23 Provider, [facility] PCP - General 11/16/23 08/30/24 Lesly Toribio DO [address] [address] PCP - General Family Medicine 08/31/24 Megan Davila, DEPUTY GENERAL COUNSEL, TAIL DOGGER Nurse Practitioner Advanced Practice Nurse 03/24/17 Maynor Joy MD [address] [place] [address] Consulting Physician Orthopaedic Surgery 04/29/22 Serene Vega MD [address] [address] Consulting Physician Urology 05/08/22 documented as of this encounter
--- OUTSIDE RECORDS SUMMARY | 2024-11-18 13:40 | XMS_ITS | Encounter Summary ---
Author Organization [facility] Address [address] [place] [address] Phone Care Team Providers Care Registered Travel Nurse Name Role Phone Megan Davila APRN, BIOMETRY TEACHER Unavailable Jose Roberto Carlson MD Primary Care Provider [phone] Elzbieta Shelton Primary Care Provider + Donnie Rene MD Primary Care Provider [phone] Maynor Joy MD Unavailable Serene Vega MD Unavailable [phone] Provider, None Primary Care Provider Unavailabl e Lesly Toribio DO Primary Care Provider [phone] Reason for Visit * Reason Onset Date Comments Medication Refill 07/22/2020 Encounter Details Date Type Department Care Team (Late st Contact Info) Description 07/22/2020 [facility] [address] [place] [id number] Jose Roberto Carlson MD [address] [place] [address] Medication Refill Social History Tobacco [...] COVID-19? No / Unsure 06/27/2020 7:41 AM DOG WALKER documented as of this encounter Miscellaneous Notes * Telephone Encounter - Lisbet Pope RN - 07/23/2020 8:33 AM CST Medication failed the protocol, provider to review and approve the medication order if appropriate.Last OV 06/10/20, last UDS 06/18/20. Requested Prescriptions Pending Prescriptions Disp Refills amphetamine-dextroamphetamine (ADDERALL XR) 10 MG CAPSULE SR 24 HR 30 Cap 0 Not Delegated - Psychiatry: Stimulants/ADHD Failed - 07/22/2020 2:45 PM Failed - This refill cannot be delegated Passed - Valid encounter within last 6 months Past Office Visits Recent Outpatient Visits 1 month ago RUQ abdominal pain [facility] - Jose Roberto Post MD 4 months ago Hypercholesterolemia [facility] - Jose Roberto Post MD 5 months ago Sore throat [facility] - Jose Roberto Post MD 6 months ago Attention deficit hyperactivity disorder (ADHD), combined type [facility] - Jose Roberto Post MD 7 months ago [facility] (current[facility] Upcoming Appointments CLIENT ONBOARDING ANALYST - Recent and Past Visits Recent Visits Date Type Provider Dept 06/10/20 Office Visit Jose Roberto Carlson MD [facility] 03/20/20 Office Visit Jose Roberto Carlson MD [facility] 02/20/20 Office Visit Jose Roberto Carlson MD [facility] 01/09/20 Office Visit Jose Roberto Carlson MD [facility] 12/19/19 Office Visit Jose Roberto Carlson MD [facility] 10/10/19 Office Visit Jose Roberto Carlson MD [facility] 08/08/19 Office Visit Jose Roberto Carlson MD [facility] 05/02/19 Office Visit Jose Roberto Carlson MD [facility] Showing recent visits within past 460 days with a meds authorizing provider and meeting all other requirements Future Appointments No visits were found meeting these conditions. Showing future appointments within next 90 days with a meds authorizing provider and meeting all other requirements Passed - Last BP in normal range BP Readings from Last 1 Encounters: 06/10/20 126/72 sertraline (ZOLOFT) 100 MG Tablet 135 Tab 3 Sig: TAKE 1 & 1/2 TABLETS BY MOUTH EVERY DAY Not Delegated - Psychiatry: Antidepressants Failed - 07/22/2020 2:45 PM Failed - This refill cannot be delegated Passed - Valid encounter within last 12 months Past Office Visits Recent Outpatient Visits 1 month ago RUQ abdominal pain [facility] - Jose Roberto Post MD 4 months ago Hypercholesterolemia [facility] - Jose Roberto Post MD 5 months ago Sore throat [facility] Jose Roberto Solomon MD 6 months ago Attention deficit hyperactivity disorder (ADHD), combined type [facility] - Jose Roberto Post MD 7 months ago long term care phlebotomist (current) use of opiate analgesic [facility] - Jose Roberto Post MD Upcoming Appointments CLIENT ONBOARDING ANALYST - Recent and Past Visits Recent Visits Date Type Provider Dept 06/10/20 Office Visit Jose Roberto Carlson MD [facility] 03/20/20 Office Visit Jose Roberto Carlson MD [facility] 02/20/20 Office Visit Jose Roberto Carlson MD [facility] 01/09/20 Office Visit Jose Roberto Carlson MD [facility] 12/19/19 Office Visit Jose Roberto Carlson MD [facility] 10/10/19 Office Visit Jose Roberto Carlson MD [facility] 08/08/19 Office Visit Jose Roberto Carlson MD [facility] 05/02/19 Office Visit Jose Roberto Carlson MD [facility] Showing recent visits within past 460 days with a meds authorizing provider and meeting all other requirements Future Appointments No visits were found meeting these conditions. Showing future appointments within next 90 days with a meds authorizing provider and meeting all other requirements ALPRAZolam (XANAX) 1 MG Tablet 30 Tab 0 Sig: Take 1 Tab by mouth 2 times daily as needed for Anxiety. Not Delegated - Psychiatry: Anxiolytics/Hypnotics Failed - 07/22/2020 2:45 PM Failed - This refill cannot be delegated Passed - Valid encounter within last 6 months Past Office Visits Recent Outpatient Visits 1 month ago RUQ abdominal pain [facility] - Jose Roberto Post MD 4 months ago Hypercholesterolemia [facility] - Jose Roberto Post MD 5 months ago Sore throat [facility] - Jose Roberto Post MD 6 months ago Attention deficit hyperactivity disorder (ADHD), combined type [facility] - Jose Roberto Post MD 7 months ago long term care phlebotomist (current) use of opiate analgesic [facility] - Jose Roberto Post MD Upcoming Appointments CLIENT ONBOARDING ANALYST - Recent and Past Visits Recent Visits Date Type Provider Dept 06/10/20 Office Visit Jose Roberto Carlson MD [facility] 03/20/20 Office Visit Jose Roberto Carlson MD [facility] 02/20/20 Office Visit Jose Roberto Carlson MD [facility] 01/09/20 Office Visit Jose Roberto Carlson MD [facility] 12/19/19 Office Visit Jose Roberto Carlson MD [facility] 10/10/19 Office Visit Jose Roberto Carlson MD [facility] 08/08/19 Office Visit Jose Roberto Carlson MD [facility] 05/02/19 Office Visit Jose Roberto Carlson MD [facility] Showing recent visits within past 460 days with a meds authorizing provider and meeting all other requirements Future Appointments No visits were found meeting these conditions. Showing future appointments within next 90 days with a meds authorizing provider and meeting all other requirements ibuprofen (MOTRIN) 800 MG Tablet 120 Tab 2 Analgesics: NSAIDS - OTC Passed - 07/22/2020 2:45 PM Passed - Valid encounter within last 12 months Past Office Visits Recent Outpatient Visits 1 month ago RUQ abdominal pain [facility] - Jose Roberto Post MD 4 [facility] 5 months ago Sore throat [facility] Jose Roberto Solomon MD 6 months ago Attention deficit hyperactivity disorder (ADHD), combined type [facility] - Jose Roberto Post MD 7 months ago residential (current) use of opiate analgesic [facility] Jose Roberto Post MD Upcoming Appointments CLIENT ONBOARDING ANALYST - Recent and Past Visits Recent Visits Date Type Provider Dept 06/10/20 Office Visit Jose Roberto Carlson MD [facility] 03/20/20 Office Visit Jose Roberto Carlson MD [...] authorizing provider and meeting all other requirements WALKER * Telephone Encounter - Chana Byrnes - 07/22/2020 2:44 PM CST Received: []FAX [x]TELEPHONE CALL []MYCHART from: []PHARMACY [x]PATIENT/OTHER regarding medication management. Medication name and dose: Requested Prescriptions Pending Prescriptions Disp Refills â€¢ amphetamine-dextroamphetamine (ADDERALL XR) 10 MG CAPSULE SR 24 HR 30 Cap 0 â€¢ sertraline (ZOLOFT) 100 MG Tablet 135 Tab 3 Sig: TAKE 1 & 1/2 TABLETS BY MOUTH EVERY DAY â€¢ ALPRAZolam (XANAX) 1 MG Tablet 30 Tab 0 Sig: Take 1 Tab by mouth 2 times daily as needed for Anxiety. â€¢ ibuprofen (MOTRIN) 800 MG Tablet 120 Tab 2 Quantity: (30 day, 90 day, 3 monthly scripts) 30 Pharmacy preference for this medication: [id number] Outcome: [x]Medication pended, routed to surescripts []Medication refused []Informed caller of refills at pharmacy []Additional message to medication management RN []Verbal authorization for written order to pharmacy []Additional message to provider []Verified medication with pharmacy [facility] Medication Management WALKER documented in this encounter Plan of Treatment Not on file documented as of this encounter Visit Diagnoses Diagnosis Attention deficit hyperactivity disorder (ADHD), combined type Severe episode of recurrent major depressive disorder, without psychotic features (HCC) Generalized anxiety disorder documented in this encounter Additional Health Concerns Infection Onset Date Last Indicated Resolved Time COVID - 19 04/04/2023 04/04/2023 04/04/2023 5:37 PM CDT COVID - 19 08/14/2023 08/14/2023 08/24/2023 12:1 6 AM DOG WALKER RSV 08/14/2023 08/14/2023 09/11/2023 12:1 6 AM DOG WALKER COVID - 19 02/18/2024 02/18/2024 02/18/2024 5:32 PM CDT COVID - 19 08/11/2024 08/11/2024 08/11/2024 2:02 PM DOG WALKER Influenza 08/11/2024 08/11/2024 08/18/2024 12:1 7 AM DOG WALKER Assessment Noted Time PHQ-9 Depression Total Score: 0 02/20/20 20 8:11 AM CDT documented as of this encounter Care Teams Registered Travel Nurse Relationship Specialty Start Date End Date Jose Roberto Carlson MD PCP - General Family Medicine 10/03/18 10/19/21 Elzbieta Shelton PAC [address] [place] [address] PCP - General Physician Director Broadcast 10/28/21 10/28/21 Donnie Rene MD [address] [place] [address] PCP - General Internal Medicine 11/18/21 11/15/23 Provider, [facility] PCP - General 11/16/23 08/30/24 Lesly Toribio DO 2 [facility] [address] [place] [address] PCP - General Family Medicine 08/31/24 Megan Davila, MOLDER SWEEP, BIOMETRY TEACHER Nurse Practitioner Advanced Practice Nurse 03/24/17 Maynor Joy MD [address] [place] [address] Consulting Physician Orthopaedic Surgery 04/29/22 Serene Vega MD #2 [facility] [address] [place] [address] Consulting Physician Urology 05/08/22 documented as of this encounter
--- OUTSIDE RECORDS SUMMARY | 2024-11-18 13:40 | XMS_ITS | Encounter Summary ---
Author Organization [facility] Address [address] [place] [address] Phone Care Team Providers Care Gradall Operator Name Role Phone Megan Davila APRN, BUSINESS RECORDS MANAGER Unavailable Jose Roberto Carlosn MD Primary Care Provider [phone] Elzbieta Shelton Primary Care Provider + Donnie Rene MD Primary Care Provider [phone] Maynor Joy MD Unavailable Serene Vega MD Unavailable [phone] Provider, None Primary Care Provider Unavailabl e Lesly Toribio DO Primary Care Provider [phone] Reason for Visit * Reason Comments Medication Refill Encounter Details Date Type Department Care Team (Late st Contact Info) Description 10/16[facility] [address] [place] [id number] Jose Roberto Carlson MD [address] [place] [address] Medication Refill Social History Tobacco [...] have Coronavirus / COVID-19? No / Unsure 10/17/2020 12:26 PM CDT documented as of this encounter Miscellaneous Notes * Telephone Encounter - Sandra Coronado RN - 10/17/2020 3:39 PM CDT The original prescription was discontinued on 10/17/2020 by Jose Roberto Calrson MD * Telephone Encounter - Sandra Coronado RN - 10/17/2020 11:18 AM CDT Patient has appointment TODAY documented in this encounter Plan of Treatment Not on file documented as of this encounter Visit Diagnoses Not on filedocumented in this encounter Additional Health Concerns Infection Onset Date Last Indicated Resolved Time COVID - 19 04/04/2023 04/04/2023 04/04/2023 5:37 PM CDT COVID - 19 08/14/2023 08/14/2023 08/24/2023 12:1 6 AM SPRINKLING SYSTEM IRRIGATOR RSV 08/14/2023 08/14/2023 09/11/2023 12:1 6 AM SPRINKLING SYSTEM IRRIGATOR COVID - 19 02/18/2024 02/18/2024 02/18/2024 5:32 PM CDT COVID - 19 08/11/2024 08/11/2024 08/11/2024 2:02 PM SPRINKLING SYSTEM IRRIGATOR Influenza 08/11/2024 08/11/2024 08/18/2024 12:1 7 AM SPRINKLING SYSTEM IRRIGATOR Assessment Noted Time PHQ-9 Depression Total Score: 0 02/20/20 8:11 AM CDT documented as of this encounter Care Teams Gradall Operator Relationship Specialty Start Date End Date Jose Roberto Carlson MD PCP - General Family Medicine 10/03/18 10/19/21 Elzbieta Shelton PAC [address] [place] [address] PCP - General Physician Radio Dispatcher 10/28/21 10/28/21 Donnie Rene MD [address] [place] [address] PCP - General Internal Medicine 11/18/21 11/15/23 Provider, None [place] PCP - General 11/16/23 08/30/24 Lesly Toribio DO 2 [facility] [address] [place] [address] PCP - General Family Medicine 08/31/24 Megan Davila, MASTER LAY OUT SPECIALIST, BUSINESS RECORDS MANAGER Nurse Practitioner Advanced Practice Nurse 03/24/17 Maynor Joy MD [address] [place] [address] Consulting Physician Orthopaedic Surgery 04/29/22 Serene Vega MD [address]2 [facility] [address] [place] [address] Consulting Physician Urology 05/08/22 documented as of this encounter
--- OUTSIDE RECORDS SUMMARY | 2024-11-18 13:40 | XMS_ITS | Encounter Summary ---
Author Organization [facility] Address [address] [place] [address] Phone Care Team Providers Care Linen Checker Name Role Phone Megan Davila MALATHI, SANDER SETTER Unavailable Donnie Rene MD Primary Care Provider [phone] Maynor Joy MD Unavailable Serene Vega MD Unavailable [phone] Provider, None Primary Care Provider Unavailabl e Lesly Toribio DO Primary Care Provider [phone] Encounter Details Date Type Department Care Team (Latest Contact Info) Description 05/21/2022 Transcribe Orders [facility] Preop/Pacu II [address] [place] [id number] Dari Benavidez, DPM [address] [place] [address] Pre-op testing (Primary Dx) Social History Tobacco Use Types Packs/Day Years Used Date Smoking Tobacco: Every Day Cigarettes Smokeless Tobacco: Never Alcohol Use Standard Drinks/Week Comments Not Currently 0 (1 standard drink = 0.6 oz [...] Exposure Response Date Recorded In the last 10 days, have yo u been in contact with someone who was confirmed or suspected to have Coronavirus/COVID-19? No / Unsure 05/21/2022 2:18 PM KILN DOOR REPAIRER documented as of this encounter Plan of Treatment Not on file documented as of this encounter Results * SARS-COV-2 BY MOLECULAR (05/25/2022 10:17 AM KILN DOOR REPAIRER) SARSCOV2 NOT DETECTED (Referenc e Range for this test is Not Detected) [facility] GRANT ID NOW 05/25/2022 10:47 AM KILN DOOR REPAIRER [facility] Comment:This test was perfor med by a MOLECULAR, NON-PCR method Other NASOPHARYNGEAL STRUCTURE / Unknown Non-Phlebotomy Collection / Unknown 05/25/2022 10:17 AM KILN DOOR REPAIRER 05/25/2022 10:31 AM KILN DOOR REPAIRER Narrative [facility] - 05/25/2022 10:47 AM KILN DOOR REPAIRER This test has been authorized by the FDA under an Emergency Use Authorization (EUA) only. Negative results should be treated as presumptive and, if inconsistent with clinical signs and symptoms or necessary for patient management, the patient should be tested with an alternative molecular assay. Negative results do not preclude SARS-CoV-2 infection or any other respiratory pathogen. Additional information for Clinicians can be found at: https://www.fda.gov/media/225685/download Additional information for Patients can be found at: https://www.fda.gov/media/848430/download Dari Benavidez DPM MICROBIOLOGY - GENERAL ORDER AIDEE Final Result [facility] [address] [place] [address] documented in this encounter Visit Diagnoses Diagnosis Pre-op testing- Primary Preoperative examination, unspecified documented in this encounter Additional Health Concerns Infection Onset Date Last Indicated Resolved Time COVID - 19 04/04/2023 04/04/2023 04/04/2023 5:37 PM CDT COVID - 19 08/14/2023 08/14/2023 08/24/2023 12:1 6 AM KILN DOOR REPAIRER RSV 08/14/2023 08/14/2023 09/11/2023 12:1 6 AM KILN DOOR REPAIRER COVID - 19 02/18/2024 02/18/2024 02/18/2024 5:32 PM CDT COVID - 19 08/11/2024 08/11/2024 08/11/2024 2:02 PM KILN DOOR REPAIRER Influenza 08/11/2024 08/11/2024 08/18/2024 12:1 7 AM KILN DOOR REPAIRER Assessment Noted Time PHQ-9 Depression Total Score: 0 02/20/20 8:11 AM CDT documented as of this encounter Care Teams Linen Checker Relationship Specialty Start Date End Date Donnie Rene MD [address] [place] [address] PCP - General Internal Medicine 11/18/21 11/15/23 Provider, None [place] PCP - General 11/16/23 08/30/24 Lesly Toribio DO 2 [facility] [address] [place] [address] PCP - General Family Medicine 08/31/24 Megan Davila, VAULT KEEPER, SANDER SETTER Nurse Practitioner Advanced Practice Nurse 03/24/17 Maynor Joy MD [address] [place] [address] Consulting Physician Orthopaedic Surgery 04/29/22 Serene Vega MD #2 [facility] [address] [place] [address] Consulting Physician Urology 05/08/22 documented as of this encounter
--- OUTSIDE RECORDS SUMMARY | 2024-11-18 13:40 | XMS_ITS | Encounter Summary ---
Author Organization [facility] Address [address] [place] [address] Phone Care Team Providers Care Project Officer Name Role Phone Megan Davila APRN, FIREBRICK AND REFRACTORY TILE REPAIRER Unavailable Jose Roberto Carlson MD Primary Care Provider [phone] Elzbieta Shelton Primary Care Provider + Donnie Rene MD Primary Care Provider [phone] Maynor Joy MD Unavailable Serene Vega MD Unavailable [phone] Provider, None Primary Care Provider Unavailabl e Lesly Toribio DO Primary Care Provider [phone] Reason for Visit * Reason Comments Medication Refill Encounter Details Date Type Department Care Team (Late st Contact Info) Description 07/24/2020 Refill [facility] - Family Medicine [facility] [address] [place] [id number] Jose Roberto Carlson MD [address] [place] [address] Medication Refill Social History Tobacco Use Types [...] COVID-19? No / Unsure 06/27/2020 7:41 AM OPTICAL LENS MANUFACTURING TECH documented as of this encounter Plan of Treatment Not on file documented as of this encounter Visit Diagnoses Diagnosis Generalized anxiety disorder Attention deficit hyperactivity disorder (ADHD), combined type documented in this encounter Additional Health Concerns Infection Onset Date Last Indicated Resolved Time COVID - 19 04/04/2023 04/04/2023 04/04/2023 5:37 PM CDT COVID - 19 08/14/2023 08/14/2023 08/24/2023 12:1 6 AM OPTICAL LENS MANUFACTURING TECH RSV 08/14/2023 08/14/2023 09/11/2023 12:1 6 AM OPTICAL LENS MANUFACTURING TECH COVID - 19 02/18/2024 02/18/2024 02/18/2024 5:32 PM CDT COVID - 19 08/11/2024 08/11/2024 08/11/2024 2:02 PM OPTICAL LENS MANUFACTURING TECH Influenza 08/11/2024 08/11/2024 08/18/2024 12:1 7 AM OPTICAL LENS MANUFACTURING TECH Assessment Noted Time PHQ-9 Depression Total Score: 0 02/20/20 8:11 AM CDT documented as of this encounter Care Teams Project Officer Relationship Specialty Start Date End Date Jose Roberto Carlson MD PCP - General Family Medicine 10/03/18 10/19/21 Elzbieta Shelton PAC [address] [place] [address] PCP - General Physician Telephone Plant Power Operator 10/28/21 10/28/21 Donnie Reen MD [place] [address] PCP - General Internal Medicine 11/18/21 11/15/23 Provider, None [place] PCP - General 11/16/23 08/30/24 Lesly Toribio DO 2 [facility]. [address] [place] [address] PCP - General Family Medicine 08/31/24 Megan Davila, TURF GROWER, FIREBRICK AND REFRACTORY TILE REPAIRER Nurse Practitioner Advanced Practice Nurse 03/24/17 Maynor Joy MD [address] [place] [address] Consulting Physician Orthopaedic Surgery 04/29/22 Serene Vega MD #2 [facility] [address] [place] [address] Consulting Physician Urology 05/08/22 documented as of this encounter
--- OUTSIDE RECORDS SUMMARY | 2024-11-18 13:40 | XMS_ITS | Encounter Summary ---
Author Organization [facility] Address [address] [place] [address] Phone Care Team Providers Care Care Connector Name Role Phone Megan Davila APRN, TUNNEL HEADING INSPECTOR Unavailable Jose Roberto Carlson MD Primary Care Provider [phone] Elzbieta Shelton Primary Care Provider + Donnie Rene MD Primary Care Provider [phone] Maynor Joy MD Unavailable Serene Vega MD Unavailable [phone] Provider, None Primary Care Provider Unavailabl e Lesly Toribio DO Primary Care Provider [phone] Reason for Visit * Reason Comments Medication Refill Encounter Details Date Type Department Care Team (Late st Contact Info) Description 09/16/2020 [facility] [address] [place] [phone] Jose Roberto Carlson MD [address] [place] [address] Medication Refill Social History Tobacco [...] COVID-19? No / Unsure 09/06/2020 2:29 PM DB2 DEVELOPER documented as of this encounter Miscellaneous Notes * Telephone Encounter - Sandra Coronado RN - 09/17/2020 9:36 AM CDT Adderall - 08/24/20 - next fill 09/23/20 Alprazolam 08/24/20 - next fill 09/23/20 Omeprazole & Zofran were discontinued by Elzbieta Arciniega failed the protocol, provider to review and approve the medication order if appropriate. Requested Prescriptions Pending Prescriptions Disp Refills omeprazole (PriLOSEC) 20 MG CAPSULE DELAYED RELEASE [Pharmacy Med Name: OMEPRAZOLE 20MG CAPSULE DR]30 Capsule 0 Sig: TAKE 1 CAPSULE BY MOUTH DAILY. Gastroenterology: Antiulcer - Proton Pump Inhibitors Passed - 09/16/2020 12:29 PM Passed - Valid encounter within last 12 months Past Office Visits Recent Outpatient Visits 1 week ago Spinal stenosis of lumbar region, unspecified whether neurogenic claudication present [facility] - Family [facility] - Elzbieta Suárez PAC 3 months ago RUQ abdominal pain [facility] - [facility] - Jose Roberto Post MD 6 months ago Hypercholesterolemia [facility] - [facility] - Jose Roberto Post MD 7 months ago Sore throat [facility] - Family Medicine - Jose Roberto Post MD 8 months ago Attention deficit hyperactivity disorder (ADHD), combined type [facility] Medical [facility] Family Medicine - Jose Roberto Post MD Upcoming Appointments Future Appointments Tomorrow Kaelyn Rangel, PT [facility] PERSONNEL ASSISTANT - Recent and Past Visits Recent Visits Date Type Provider Dept 09/06/20 Office Visit Elzbieta Shelton PAC [facility] 06/10/20 Office Visit Jose Roberto Carlson MD [facility] 03/20/20 Office Visit Jose Roberto Carlson MD [facility] 02/20/20 Office Visit Jose Roberto Carlson MD [facility] 01/09/20 Office Visit Jose Roberto Carlson MD [facility] 12/19/19 Office Visit Jose Roberto Carlson MD [facility] 10/10/19 Office Visit Jose Roberto Carlson MD [facility] 08/08/19 Office Visit Jose Roberto Carlson MD [facility] Showing recent visits within past 460 days with a meds authorizing provider and meeting all other requirements Future Appointments No visits were found meeting these conditions. Showing future appointments within next 90 days with a meds authorizing provider and meeting all other requirements ondansetron (ZOFRAN) 4 MG Tablet [Pharmacy Med Name: ONDANSETRON HYDROCHLORIDE 4MG TABLET] 15 Tablet 0 Sig: TAKE 1 TABLET BY MOUTH EVERY 8 HOURS NEEDED FOR NAUSEA - 1ST LINE OR NAUSEA - 2ND LINE. Gastroenterology: Antiemetics Passed - 09/16/2020 12:29 PM Passed - Valid encounter within last 12 months Past Office Visits Recent Outpatient Visits 1 week ago Spinal stenosis of lumbar region, unspecified whether neurogenic claudication present [facility] - Elzbieta Suárez PAC 3 months ago RUQ abdominal pain [facility] - [facility] - Jose Roberto Post MD 6 months ago Hypercholesterolemia [facility] - Jose Roberto Post MD 7 months ago Sore throat [facility] - Family Medicine - Jose Roberto Post MD 8 months ago Attention deficit hyperactivity disorder (ADHD), combined type [facility] Family Medicine - Jose Roberto Post MD Upcoming Appointments Future Appointments Tomorrow Kaelyn Rangel, PT [facility] PERSONNEL ASSISTANT - Recent and Past Visits Recent Visits Date Type Provider Dept 09/06/20 Office Visit Elzbieta Shelton, MAR[facility]ZA [facility] 06/10[facility]20 Office Visit Jose Roberto Carlson MD [facility] 03/20/20 Office Visit [facility] Office Visit Jose Roberto Carlson MD [facility] 12/19/19 Office Visit Jose Roberto Carlson MD [facility] 10/10/19 Office Visit Jose Roberto Carlson MD [facility] 08/08/19 Office Visit Jose Roberto Carlson MD [facility] Showing recent visits within past 460 days with a meds authorizing provider and meeting all other requirements Future Appointments No visits were found meeting these conditions. Showing future appointments within next 90 days with a meds authorizing provider and meeting all other requirements amphetamine-dextroamphetamine (ADDERALL XR) 10 MG CAPSULE SR 24 HR [Pharmacy Med Name: AMPHETAMINE/DEXTROAMPHETAMINE 10MG ER CAPSULE ER 24HR] 30 Capsule 0 Sig: TAKE 1 CAPSULE BY MOUTH DAILY. Not Delegated - Psychiatry: Stimulants/ADHD Failed - 09/16/2020 12:29 PM Failed - Last BP in normal range BP Readings from Last 1 Encounters: 09/06/20 142/82 Failed - This refill cannot be delegated Passed - Valid encounter within last 6 months Past Office Visits Recent Outpatient Visits 1 week ago Spinal stenosis of lumbar region, unspecified whether neurogenic claudication present [facility] Medical [facility] - Family [facility] - Elzbieta Suárez PAC 3 months ago RUQ abdominal pain [facility] - Family Medicine - Jose Roberto Post MD 6 months ago Hypercholesterolemia [facility] - Jose Roberto Post MD 7 months ago Sore throat [facility] Medical [facility] - Jose Roberto Post MD 8 months ago Attention deficit hyperactivity disorder (ADHD), combined type [facility] Medical [facility] Family [facility] - Jose Roberto Post MD Upcoming Appointments Future Appointments Tomorrow Kaelyn Rangel, PT [facility] PERSONNEL ASSISTANT - Recent and Past Visits Recent Visits Date Type Provider Dept 09/06/20 Office Visit Elzbieta Shelton PAC [facility] 06/10/20 Office Visit Jose Roberto Carlson MD [facility] 03/20/20 Office Visit Jose Roberto Carlson MD [facility] 02/20/20 Office Visit Jose Roberto Carlson MD [facility] 01/09/20 Office Visit Jose Roberto Carlson MD [facility] 12/19/19 Office Visit Jose Roberto Carlson MD [facility] 10/10/19 Office Visit Jose Roberto Carlson MD [facility] 08/08/19 Office Visit Jose Roberto Carlson MD [facility] Showing recent visits within past 460 days with a meds authorizing provider and meeting all other requirements Future Appointments No visits were found meeting these conditions. Showing future appointments within next 90 days with a meds authorizing provider and meeting all other requirements ALPRAZolam (XANAX) 1 MG Tablet [Pharmacy Med Name: ALPRAZOLAM 1MG TABLET] 30 Tablet 0 Sig: TAKE 1 TABLET BY MOUTH 2 TIMES DAILY NEEDED FOR ANXIETY. Not Delegated - Psychiatry: Anxiolytics/Hypnotics Failed - 09/16/2020 12:29 PM Failed - This refill cannot be delegated Passed - Valid encounter within last 6 months Past Office Visits Recent Outpatient Visits 1 week ago Spinal stenosis of lumbar region, unspecified whether neurogenic claudication present [facility] Medical [facility] 3 months ago RUQ abdominal pain [facility] Medical [facility] - Family [facility] - Jose Roberto Post MD 6 months ago Hypercholesterolemia [facility] - Jose Roberto Post MD 7 months ago Sore throat [facility] Medical [facility] Family [facility] - Jose Roberto Post MD 8 months ago Attention deficit hyperactivity disorder (ADHD), combined type [facility] Medical [facility] Family [facility] - Jose Roberto Post MD Upcoming Appointments Future Appointments Tomorrow Kaelyn Rangel, PT [facility] PERSONNEL ASSISTANT - Recent and Past Visits Recent Visits Date Type Provider Dept 09/06/20 Office Visit Elzbieta Shelton, MARITZA [facility] 06/10/20 Office Visit Jose Roberto Carlson MD [facility] 03/20/20 Office Visit Jose Roberto Carlson MD [facility] 02/20/20 Office Visit Jose Roberto Carlson MD [facility] 01/09/20 Office Visit Jose Roberto Carlson MD [facility] 12/19/19 Office Visit Jose Roberto Carlson MD [facility] 10/10/19 Office Visit Jose Roberto Carlson MD [facility] 08/08/19 Office Visit Jose Roberto Carlson, [facility] Showing recent visits within past 460 [...] 19 08/14/2023 08/14/2023 08/24/2023 12:1 6 AM DB2 DEVELOPER RSV 08/14/2023 08/14/2023 09/11/2023 12:1 6 AM DB2 DEVELOPER COVID - 19 02/18/2024 02/18/2024 02/18/2024 5:32 PM CDT COVID - 19 08/11/2024 08/11/2024 08/11/2024 2:02 PM DB2 DEVELOPER Influenza 08/11/2024 08/11/2024 08/18/2024 12:1 7 AM DB2 DEVELOPER Assessment Noted Time PHQ-9 Depression Total Score: 0 02/20/20 8:11 AM CDT documented as of this encounter Care Teams Care Connector Relationship Specialty Start Date End Date Jose Roberto Carlson MD PCP - General Family Medicine 10/03/18 10/19/21 Elzbieta Shelton PAC [address] [place] [address] PCP - General Physician Researcher 10/28/21 10/28/21 Donnie Rene MD [address] [place] [address] PCP - General Internal Medicine 11/18/21 11/15/23 [address], [facility] PCP - General 11/16/23 08/30/24 Lesly Toribio DO [address] [address] PCP - General Family Medicine 08/31/24 Megan Davila, HABILITATION SPECIALIST, TUNNEL HEADING INSPECTOR Nurse Practitioner Advanced Practice Nurse 03/24/17 Maynor Joy MD [address] [place] [address] Consulting Physician Orthopaedic Surgery 04/29/22 Serene Vega MD [address] [address] Consulting Physician Urology 05/08/22 documented as of this encounter
--- OUTSIDE RECORDS SUMMARY | 2024-11-18 13:40 | XMS_ITS | Encounter Summary ---
Author Organization [facility] Address [address] [place] [address] Phone Care Team Providers Care Director Nicu Name Role Phone Megan Davila APRN, CONTINUOUS WASHER OPERATOR Unavailable Jose Roberto Carlson MD Primary Care Provider [phone] Elzbieta Shelton Primary Care Provider + Donnie Rene MD Primary Care Provider [phone] Maynor Joy MD Unavailable Serene Vega MD Unavailable [phone] Provider, None Primary Care Provider Unavailabl e Lesly Toribio DO Primary Care Provider [phone] Reason for Visit * Reason Comments Medication Refill Encounter Details Date Type Department Care Team (Late st Contact Info) Description 11/11/2020 [facility] [address] [place] [phone] Jose Roberto Carlson MD [address] [place] [address] Medication Refill Social History Tobacco [...] have Coronavirus / COVID-19? No / Unsure 10/24/2020 10:32 AM CDT documented as of this encounter Miscellaneous Notes * Telephone Encounter - Lisa Garcia RN - 11/11/2020 10:48 AM CDT Med dc'd by PCP documented in this encounter Plan of Treatment Not on file documented as of this encounter Visit Diagnoses Diagnosis Generalized anxiety disorder documented in this encounter Additional Health Concerns Infection Onset Date Last Indicated Resolved Time COVID - 19 04/04/2023 04/04/2023 04/04/2023 5:37 PM CDT COVID - 19 08/14/2023 08/14/2023 08/24/2023 12:1 6 AM LIGHT RAIL VEHICLE OPERATOR RSV 08/14/2023 08/14/2023 09/11/2023 12:1 6 AM LIGHT RAIL VEHICLE OPERATOR COVID - 19 02/18/2024 02/18/2024 02/18/2024 5:32 PM CDT COVID - 19 08/11/2024 08/11/2024 08/11/2024 2:02 PM LIGHT RAIL VEHICLE OPERATOR Influenza 08/11/2024 08/11/2024 08/18/2024 12:1 7 AM LIGHT RAIL VEHICLE OPERATOR Assessment Noted Time PHQ-9 Depression Total Score: 0 02/20/20 8:11 AM CDT documented as of this encounter Care Teams Director Nicu Relationship Specialty Start Date End Date Jose Roberto Carlson MD PCP - General Family Medicine 10/03/18 10/19/21 Elzbieta Shelton PAC #2 [place] [id number] PCP - General Physician Legal Process Specialist 10/28/21 10/28/21 Donnie Rene MD [address] [place] [address] PCP - General Internal Medicine 11/18/21 11/15/23 Provider, None [place] PCP - General 11/16/23 08/30/24 Lesly Toribio DO 2 [facility] [address] [place] [address] PCP - General Family Medicine 08/31/24 Megan Davila, WIRE PREPARATION MACHINE TENDER, CONTINUOUS WASHER OPERATOR Nurse Practitioner Advanced Practice Nurse 03/24/17 Maynor Joy MD [address] [place] [address] Consulting Physician Orthopaedic Surgery 04/29/22 Serene Vega MD #2 [facility] [address] [place] [address] Consulting Physician Urology 05/08/22 documented as of this encounter
--- OUTSIDE RECORDS SUMMARY | 2024-11-18 13:40 | XMS_ITS | Encounter Summary ---
Author Organization [facility] Address [address] [place] [address] Phone Care Team Providers Care Beading Machine Operator Name Role Phone Megan Davila APRN, RATE MANAGER Unavailable Jose Roberto Carlson MD Primary Care Provider [phone] Elzbieta Shelton Primary Care Provider + Donnie Rene MD Primary Care Provider [phone] Maynor Joy MD Unavailable Serene Vega MD Unavailable [phone] Provider, None Primary Care Provider Unavailabl e Lesly Toribio DO Primary Care Provider [phone] Reason for Visit * Reason Comments Medication Refill Encounter Details Date Type Department Care Team (Late st Contact Info) Description 10/11/2020 [facility] [address] [place] [id number] Jose Roberto Carlson MD [address] [place] [address] Medication Refill Social History Tobacco [...] encounter Miscellaneous Notes * Telephone Encounter - Jose Roberto Carlson MD - 10/14/2020 2:24 PM CDT Has not passed her drug screens and no showed for her follow up appointments. * Telephone Encounter - Sandra Coronado RN - 10/14/2020 9:[address] Carlson, patient request these last week but they were denied for Refill not appropriate. They were last filled 08/24/20. documented in this encounter Plan of Treatment Not on file documented as of this encounter Visit Diagnoses Diagnosis Attention deficit hyperactivity disorder (ADHD), combined type Generalized anxiety disorder documented in this encounter Additional Health Concerns Infection Onset Date Last Indicated Resolved Time COVID - 19 04/04/2023 04/04/2023 04/04/2023 5:37 PM CDT COVID - 19 08/14/2023 08/14/2023 08/24/2023 12:1 6 AM TRAFFIC DIVISION COMMANDING OFFICER RSV 08/14/2023 08/14/2023 09/11/2023 12:1 6 AM TRAFFIC DIVISION COMMANDING OFFICER COVID - 19 02/18/2024 02/18/2024 02/18/2024 5:32 PM CDT COVID - 19 08/11/2024 08/11/2024 08/11/2024 2:02 PM TRAFFIC DIVISION COMMANDING OFFICER Influenza 08/11/2024 08/11/2024 08/18/2024 12:1 7 AM TRAFFIC DIVISION COMMANDING OFFICER Assessment Noted Time PHQ-9 Depression Total Score: 0 02/20/20 8:11 AM CDT documented as of this encounter Care Teams Beading Machine Operator Relationship Specialty Start Date End Date Jose Roberto Carlson MD PCP - General Family Medicine 10/03/18 10/19/21 Elzbieta Shelton PAC [address] [place] [address] PCP - General Physician Cartridge Gauger 10/28/21 10/28/21 Donnie Rene MD [address] [place] [address] PCP - General Internal Medicine 11/18/21 11/15/23 Provider, [facility] PCP - General 11/16/23 08/30/24 Lesly Toribio DO 2 [facility] [address] [place] [address] PCP - General Family Medicine 08/31/24 Megan Davila, PROFESSIONAL TUTOR, RATE MANAGER Nurse Practitioner Advanced Practice Nurse 03/24/17 Maynor Joy MD [address] [place] [address] Consulting Physician Orthopaedic Surgery 04/29/22 Serene Vega MD [address]2 [facility] [address] [place] [address] Consulting Physician Urology 05/08/22 documented as of this encounter
--- OUTSIDE RECORDS SUMMARY | 2024-11-18 13:40 | XMS_ITS | Encounter Summary ---
Author Organization [facility] Address [address] [place] [address] Phone Care Team Providers Care Government Guard Name Role Phone Megan Davila APRN, PLASTIC SURGERY MANAGER Unavailable Jose Roberto Carlson MD Primary Care Provider [phone] Elzbieta Shelton Primary Care Provider + Donnie Rene MD Primary Care Provider [phone] Maynor Joy MD Unavailable Serene Vega MD Unavailable [phone] Provider, None Primary Care Provider Unavailabl e Lesly Toribio DO Primary Care Provider [phone] Reason for Visit * Reason Comments Medication Refill Encounter Details Date Type Department Care Team (Late st Contact Info) Description 10/04/[facility] [address] [place] [id number] Jose Roberto Carlson MD [address] [place] [address] Medication Refill Social History Tobacco [...] COVID-19? No / Unsure 09/06/2020 2:29 PM FOOD PROCESSING CHEMIST documented as of this encounter Miscellaneous Notes * Telephone Encounter - Sandra Coronado RN - 10/04/2020 4:23 PM CDT [place] PD[place] 08/24/20 Medication failed the protocol, provider to review and approve the medication order if appropriate. Requested Prescriptions Pending Prescriptions Disp Refills ALPRAZolam (XANAX) 1 MG Tablet [Pharmacy Med Name: ALPRAZOLAM 1MG TABLET] 30 Tablet 0 Sig: TAKE 1 TABLET BY MOUTH 2 TIMES DAILY NEEDED FOR ANXIETY. Not Delegated - Psychiatry: Anxiolytics/Hypnotics Failed - 10/04/2020 4:23 PM Failed - This refill cannot be delegated Passed - Valid encounter within last 6 months Past Office Visits Recent Outpatient Visits 4 weeks ago Spinal stenosis of lumbar region, unspecified whether neurogenic claudication present [facility] - Elzbieta Suárez PAC 3 months ago RUQ abdominal pain [facility] - Jose Roberto Post MD 6 months ago [facility] - Jose Roberto Post MD 7 months ago Sore throat [facility] Jose Roberto Solomon MD 8 months ago Attention deficit hyperactivity disorder (ADHD), combined type [facility] - Jose Roberto Post MD Upcoming Appointments DIRECTOR OF MEDIA - Recent and Past Visits Recent Visits Date Type Provider Dept 09/06/20 Office Visit Elzbieta Shelton PAC [facility] 06/10/20 Office Visit Jose Roberto Carlson MD [facility] 03/20/20 Office Visit Jose Roberto Carlson MD [facility] 02/20/20 Office Visit Jose Roberto Carlson MD [facility] 01/09/20 Office Visit Jose Roberto Carlson MD [facility] 12/19/19 Office Visit Jose Roberto Carlson MD [facility] 10/10/19 Office Visit Jose Roberto Carlson MD [facility] 08/08/19 Office Visit Jose Roberto Carlson MD [facility] [place] Showing recent visits within past [...] Not Delegated - Psychiatry: Stimulants/ADHD Failed - 10/04/2020 4:23 PM Failed - Last BP in normal range BP Readings from Last 1 Encounters: 09/06/20 142/82 Failed - This refill cannot be delegated Passed - Valid encounter within last 6 months Past Office Visits Recent Outpatient Visits 4 weeks ago Spinal stenosis of lumbar region, unspecified whether neurogenic claudication present [facility] - Elzbieta Suárez PAC 3 months ago RUQ abdominal pain [facility] - Jose Roberto Post MD 6 months ago Hypercholesterolemia [facility] - Jose Roberto Post MD 7 months ago Sore throat [facility] - Jose Roberto Post MD 8 months ago Attention deficit hyperactivity disorder (ADHD), combined type [facility] - Jose Roberto Post MD Upcoming Appointments DIRECTOR OF MEDIA - Recent and Past Visits Recent Visits Date Type Provider Dept 09/06/20 Office Visit Elzbieta Shelton PAC [facility] 06/10/20 Office Visit Jose Roberto Carlson MD [facility] 03/20/20 Office Visit Jose Roberto Carlson MD [facility] 02/20/20 Office Visit Jose Roberto Carlson MD [facility] 01/09/20 Office Visit Jose Roberto Carlson MD [facility] 12/19/19 Office Visit Jose Roberto Carlson MD [facility] 10/10/19 Office Visit Jose Roberto Carlson MD [facility] 08/08/19 Office Visit Jose Roberto [facility] MD [facility] [place] Showing recent visits within past 460 [...] 19 08/14/2023 08/14/2023 08/24/2023 12:1 6 AM FOOD PROCESSING CHEMIST RSV 08/14/2023 08/14/2023 09/11/2023 12:1 6 AM FOOD PROCESSING CHEMIST COVID - 19 02/18/2024 02/18/2024 02/18/2024 5:32 PM CDT COVID - 19 08/11/2024 08/11/2024 08/11/2024 2:02 PM FOOD PROCESSING CHEMIST Influenza 08/11/2024 08/11/2024 08/18/2024 12:1 7 AM FOOD PROCESSING CHEMIST Assessment Noted Time PHQ-9 Depression Total Score: 0 02/20/20 8:11 AM CDT documented as of this encounter Care Teams Government Guard Relationship Specialty Start Date End Date Jose Roberto Carlson MD PCP - General Family Medicine 10/03/18 10/19/21 Elzbieta Shelton, [facility] [address] [place] [address] PCP - General Physician Lead Pourer 10/28/21 10/28/21 Donnie Rene MD [address] [place] [address] PCP - General Internal Medicine 11/18/21 11/15/23 Provider, None [place] PCP - General 11/16/23 08/30/24 Lesly Toribio DO [address] [facility]. [address] [place] [address] PCP - General Family Medicine 08/31/24 Megan Davila APRN, PLASTIC SURGERY MANAGER Nurse Practitioner Advanced Practice Nurse 03/24/17 Maynor Joy MD [address] [place] [address] Consulting Physician Orthopaedic Surgery 04/29/22 Serene Vega MD [address]2 [facility] [address] [place] [address] Consulting Physician Urology 05/08/22 documented as of this encounter
--- OUTSIDE RECORDS SUMMARY | 2024-11-18 13:40 | XMS_ITS | Encounter Summary ---
Author Organization [facility] Address [address] [place] [address] Phone Care Team Providers Care Food Tray Assembler Name Role Phone Megan Davila APRN, COPY LATHE TENDER Unavailable Jose Roberto Carlson MD Primary Care Provider [phone] Elzbieta Shelton Primary Care Provider + Donnie Rene MD Primary Care Provider [phone] Maynor Joy MD Unavailable Serene Vega MD Unavailable [phone] Provider, None Primary Care Provider Unavailabl e Lesly Toribio DO Primary Care Provider [phone] Reason for Visit * Reason Comments Medication Refill Encounter Details Date Type Department Care Team (Late st Contact Info) Description 08/19/2020 [facility] [address] [place] [id number] Jose Roberto Carlson MD [address] [place] [address] Medication Refill Social History Tobacco [...] have Coronavirus / COVID-19? No / Unsure 08/03/2020 12:06 AM NEUROCRITICAL CARE PHYSICIAN documented as of this encounter Miscellaneous Notes * Telephone Encounter - Sandra Coronado RN - 08/20/2020 11:09 AM CST Last fill [place] 07/24/20 - next fill 08/23/20 Medication failed the protocol, provider to review and approve the medication order if appropriate. Requested Prescriptions Pending Prescriptions Disp Refills ALPRAZolam (XANAX) 1 MG Tablet [Pharmacy Med Name: ALPRAZOLAM 1MG TABLET] 30 Tablet 0 Sig: TAKE 1 TABLET BY MOUTH 2 TIMES DAILY NEEDED FOR ANXIETY. Not Delegated - Psychiatry: Anxiolytics/Hypnotics Failed - 08/19/2020 8:56 AM Failed - This refill cannot be delegated Passed - Valid encounter within last 6 months Past Office Visits Recent Outpatient Visits 2 months ago RUQ abdominal pain [facility] - Jose Roberto Post MD 5 months ago Hypercholesterolemia [facility] - Jose Roberto Post MD 6 months ago Sore throat [facility] Jose Roberto Solomon MD 7 months ago Attention deficit hyperactivity disorder (ADHD), combined type [facility] - Jose Roberto Post MD 8 months ago FPC (current) use of opiate analgesic [facility] Jose Roberto Solomon MD Upcoming Appointments TRANSMITTER TESTER - Recent and Past Visits Recent Visits Date Type Provider Dept 06/10/20 Office Visit Jose Roberto Carlson MD [facility] 03/20/20 Office Visit Jose Roberto Carlson MD [facility] 02/20/20 Office Visit Carlson, MD [facility] 01/09/20 Office Visit Jose Roberto Carlson MD [facility] 12/19/19 Office Visit Jose Roberto Carlson MD [facility] 10/10/19 Office Visit Jose Roberto Carlson MD [facility] 08/08/19 Office Visit Jose Roberto Carlson MD [facility] [place] Showing recent visits within past 460 [...] Not Delegated - Psychiatry: Stimulants/ADHD Failed - 08/19/2020 8:56 AM Failed - This refill cannot be delegated Passed - Valid encounter within last 6 months Past Office Visits Recent Outpatient Visits 2 months ago RUQ abdominal pain [facility] Jose Roberto Post MD 5 months ago Hypercholesterolemia [facility] - Jose Roberto Post MD 6 months ago Sore throat [facility] - Jose Roberto Post MD 7 months ago Attention deficit hyperactivity disorder (ADHD), combined type [facility] - Jose Roberto Post MD 8 months ago buttermaker helper (current) use of opiate analgesic [facility] Jose Roberto Post MD Upcoming Appointments TRANSMITTER TESTER - Recent and Past Visits Recent Visits [...] range BP Readings from Last 1 Encounters: 08/03/20 120/76 ondansetron (ZOFRAN) 4 MG Tablet [Pharmacy Med Name: ONDANSETRON HYDROCHLORIDE 4MG TABLET] 15 Tablet 0 Sig: TAKE 1 TABLET BY MOUTH EVERY 8 HOURS NEEDED FOR NAUSEA - 1ST LINE OR NAUSEA - 2ND LINE. Gastroenterology: Antiemetics Passed - 08/19/2020 8:56 AM Passed - Valid encounter within last 12 months Past Office Visits Recent Outpatient Visits 2 months ago RUQ abdominal pain [facility] Jose Roberto Post MD 5 months ago Hypercholesterolemia [facility] - Jose Roberto Post MD 6 months ago Sore throat [facility] Jose Roberto Post MD 7 months ago Attention deficit hyperactivity disorder (ADHD), combined type [facility] - Jose Roberto Post MD 8 months ago buttermaker helper (current) use of opiate analgesic [facility] Jose Roberto Post MD Upcoming Appointments TRANSMITTER TESTER - Recent and Past Visits Recent Visits [...] authorizing provider and meeting all other requirements omeprazole (PriLOSEC) 20 MG CAPSULE DELAYED RELEASE [Pharmacy Med Name: OMEPRAZOLE 20MG CAPSULE DR]30 Capsule 0 Sig: TAKE 1 CAPSULE BY MOUTH DAILY. Gastroenterology: Antiulcer - Proton Pump Inhibitors Passed - 08/19/2020 8:56 AM Passed - Valid encounter within last 12 months Past Office Visits Recent Outpatient Visits 2 months ago RUQ abdominal pain [facility] Jose Roberto Post MD 5 months ago Hypercholesterolemia [facility] Jose Roberto Solomon MD 6 months ago Sore throat [facility] Jose Roberto Solomon MD 7 months ago Attention deficit hyperactivity disorder (ADHD), combined type [facility] - Jose Roberto Post MD 8 months ago [facility] TRANSMITTER TESTER - Recent and Past Visits Recent Visits [...] 08/08/19 Office Visit Jose Roberto Carlson MD [facility] Showing recent visits within past 460 days with a meds authorizing provider and meeting all other requirements Future Appointments No visits were found meeting these conditions. Showing future appointments within next 90 days with a meds authorizing provider and meeting all other requirements gabapentin (NEURONTIN) 300 MG Capsule [Pharmacy Med Name: GABAPENTIN 300MG CAPSULE] 120 Capsule 2 Sig: TAKE 1 CAPSULE BY MOUTH FOUR (4) TIMES DAILY Neurology: Anticonvulsants Passed - 08/19/2020 8:56 AM Passed - Valid encounter within last 12 months Past Office Visits Recent Outpatient Visits 2 months ago RUQ abdominal pain [facility] - Jose Roberto Post MD 5 months ago [facility]ch[facility] 6 months [facility] Solomon MD 7 months ago Attention deficit hyperactivity disorder (ADHD), combined type [facility] - Jose Roberto Post MD 8 months ago buttermaker helper (current) [facility] opiate [facility]ointments TRANSMITTER TESTER - Recent and Past Visits Recent Visits Date Type Provider Dept 06/10/20 Office Visit Jose Roberto Carlson MD [facility] 03/20/20 Office Visit Jose Roberto Carlson MD [facility] 02/20/20 Office Visit Jose Roberto Carlson MD [facility] 01/09/20 Office Visit Jose Roberto Carlson MD [facility] 12/19/19 Office Visit Jose Roberto Carlson MD [facility] 10/10/19 Office Visit Jose Roberto Carlson MD [facility] 08/08/19 [facility] Show[facility] recent visits within past 460 days with a meds authorizing provider and meeting all other requirements Future Appointments No visits were found meeting these conditions. Showing future appointments within next 90 days with a meds authorizing provider and meeting all other requirements OCRITICAL CARE PHYSICIAN documented in this encounter Plan of Treatment Not on file documented as of this encounter Visit Diagnoses Diagnosis Generalized anxiety disorder Attention deficit hyperactivity disorder (ADHD), combined type documented in this encounter Additional Health Concerns Infection Onset Date Last Indicated Resolved Time COVID - 04/04/2023 04/04/2023 04/04/2023 5:37 PM CDT COVID - 19 08/14/2023 08/14/2023 08/24/2023 12:1 6 AM NEUROCRITICAL CARE PHYSICIAN RSV 08/14/2023 08/14/2023 09/11/2023 12:1 6 AM NEUROCRITICAL CARE PHYSICIAN COVID - 19 02/18/2024 02/18/2024 02/18/2024 5:32 PM CDT COVID - 19 08/11/2024 08/11/2024 08/11/2024 2:02 PM NEUROCRITICAL CARE PHYSICIAN Influenza 08/11/2024 08/11/2024 08/18/2024 12:1 7 AM NEUROCRITICAL CARE PHYSICIAN Assessment Noted Time PHQ-9 Depression Total Score: 0 02/20/20 8:11 AM CDT documented as of this encounter Care Teams Food Tray Assembler Relationship Specialty Start Date End Date Jose Roberto Carlson MD PCP - General Family Medicine 10/03/18 10/19/21 Elzbieta Shelton [facility] [address] [place] [address] PCP - General Physician Glue Line Operator 10/28/21 10/28/21 Donnie Rene MD [address] [place] [address] PCP - General Internal Medicine 11/18/21 11/15/23 Provider, None [place] PCP - General 11/16/23 08/30/24 Lesly Toribio DO [address] [address] PCP - General Family Medicine 08/31/24 Megan Davila, SOUNDSCRIBER MECHANIC, COPY LATHE TENDER Nurse Practitioner Advanced Practice Nurse 03/24/17 Maynor Joy MD [address] [place] [address] Consulting Physician Orthopaedic Surgery 04/29/22 Serene Vega MD [address] [place] [address] Consulting Physician Urology 05/08/22 documented as of this encounter
--- OUTSIDE RECORDS SUMMARY | 2024-11-18 13:40 | XMS_ITS | Encounter Summary ---
Author Organization [facility] Address [address] [place] [address] Phone Care Team Providers Care Clinical Instructor Name Role Phone LolaMegan quispe Yann SERVIN, ASH KIER BOILER Unavailable Jose Roberto Carlson MD Primary Care Provider [phone] Elzbieta Shelton Primary Care Provider + Donnie Rene MD Primary Care Provider [phone] Maynor Joy MD Unavailable Serene Vega MD Unavailable [phone] Provider, None Primary Care Provider Unavailabl e Lesly Toribio DO Primary Care Provider [phone] Reason for Visit * Reason Comments Medication Refill Encounter Details Date Type Department Care Team (Late st Contact Info) Description 10/16/2020 Refill [facility] - Family Medicine [facility] [address] [place] [address] Tere Charlton APRN, ASH KIER BOILER [address] [address] Medication Refill Social History Tobacco Use Types [...] Encounter - Sandra Coronado RN - 10/17/2020 3:40 PM CDT The original prescription was discontinued on 10/17/2020 by Jose Roberto Carlson MD * Telephone Encounter - Sandra Coronado RN - 10/17/2020 11:18 AM CDT Patient has appointment TODAY with Dr Carlson documented in this encounter Plan of Treatment Not on file documented as of this encounter Visit Diagnoses Not on filedocumented in this encounter Additional Health Concerns Infection Onset Date Last Indicated Resolved Time COVID - 19 04/04/2023 04/04/2023 04/04/2023 5:37 PM CDT COVID - 19 08/14/2023 08/14/2023 08/24/2023 12:1 6 AM LEASING PROFESSIONAL RSV 08/14/2023 08/14/2023 09/11/2023 12:1 6 AM LEASING PROFESSIONAL COVID - 19 02/18/2024 02/18/2024 02/18/2024 5:32 PM CDT COVID - 19 08/11/2024 08/11/2024 08/11/2024 2:02 PM LEASING PROFESSIONAL Influenza 08/11/2024 08/11/2024 08/18/2024 12:1 7 AM LEASING PROFESSIONAL Assessment Noted Time PHQ-9 Depression Total Score: 0 02/20/20 8:11 AM CDT documented as of this encounter Care Teams Clinical Instructor Relationship Specialty Start Date End Date Jose Roberto Carlson MD PCP - General Family Medicine 10/03/18 10/19/21 Elzbieta Shelton PAC [address] [place] [address] PCP - General Physician Public Health Educator 10/28/21 10/28/21 Donnie Rene MD [address] [place] [address] PCP - General Internal Medicine 11/18/21 11/15/23 Provider, [facility] PCP - General 11/16/23 08/30/24 Lesly Toribio DO [address] [address] PCP - General Family Medicine 08/31/24 Megan Davila, ICT SUPPORT AND TEST ENGINEERS, ASH KIER BOILER Nurse Practitioner Advanced Practice Nurse 03/24/17 Maynor Joy MD [address] [place] [address] Consulting Physician Orthopaedic Surgery 04/29/22 Serene Vega MD #[address] [address] Consulting Physician Urology 05/08/22 documented as of this encounter
== END 2024-11-17 14:20 | disposition home or self-care (01) ==
PROVIDERS: Emergency Provider Nurse Practitioner Family
DX: S83.92XA Sprain of unspecified site of left knee, initial encounter (principal); S86.912A Strain of unspecified muscle(s) and tendon(s) at lower leg level, left leg, initial encounter; X50.9XXA Other and unspecified overexertion or strenuous movements or postures, initial encounter
CPT/HCPCS: 73564; 99213; G0463